=== PATIENT | female | born 1960 | race Caucasian/White ===

== ENCOUNTER 2017-12-12 21:12 | Observation (INO) ==
[2017-12-12] MEDS ORDERED: 0.9 % Sodium Chloride 500 ML IVC ONE (21:23)
[2017-12-12] MEDS ORDERED: Aspirin 81 MG TAB.CHEW PO ONE (21:23)
--- NOTE | 2017-12-12 21:27 | Emergency Department Note ---
Disposition Clinical Impression: Chest pain Qualifiers: Chest pain type: other chest pain Qualified Code(s): R07.89 - Other chest pain Disposition: Admitted As Inpatient Chest Pain HPI - General Chief Complaint: ED General Medical Stated Complaint: multiple complaints Time Seen by Provider: 12/12/17 21:22 Source: patient, EMS Mode of arrival: ambulatory Limitations: no limitations Vital Signs Reviewed: Yes Nursing Notes Reviewed: Yes - History of Present Illness HPI Narrative: Patient here for evaluation of multiple complaints. EMS reports initial call for chest pain and shortness of breath. The patient states that she had onset of symptoms while she was at home that consisted of generalized unwell feeling with nausea and diaphoresis as well as chest pain which she describes as an elephant sitting on her chest. The chest pain lasted for approximately 15 minutes and has mostly resolved upon arrival. Patient states pain 1 out of 10. Patient had associated shortness of breath which is also improved. The patient states that she began developing numbness and tingling in her extremities and was concerned because she did have some similar symptoms and she had a previous stroke. Previous stroke she states was related to confusion and difficulty with speech. These symptoms have now resolved. Patient does not have any strokelike symptoms on exam. - Related Data Home Medications Medication Instructions Recorded Confirmed Aspirin [Ecotrin] 325 mg PO DAILY 12/12/17 12/12/17 Atorvastatin [Lipitor] 80 mg PO HS 12/12/17 12/12/17 FLUoxetine HCl [Fluoxetine HCl] 10 mg PO DAILY 12/12/17 12/12/17 Levothyroxine [Synthroid] 175 mcg PO 0630 12/12/17 12/12/17 Losartan Potassium [Cozaar] 100 mg PO DAILY 12/12/17 12/12/17 Omeprazole [PriLOSEC] 20 mg PO DAILY 12/12/17 12/12/17 lamoTRIgine [Lamictal Xr] 100 mg PO BID 12/12/17 12/12/17 traZODone [TraZODone] 50 mg PO HS 12/12/17 12/12/17 Allergies Allergy/AdvReac Type Severity Reaction Status Date / Time No Known Allergies Allergy Verified 04/29/17 11:01 Review of Systems: CONSTITUTIONAL: No weight loss, fever, chills, weakness or fatigue. HEENT: Eyes: No visual changes. Ears, Nose, Throat: No hearing loss, difficulty talking or unable to swallow. SKIN: No rash or itching. CARDIOVASCULAR: Chest pain RESPIRATORY: Shortness of breath GASTROINTESTINAL: No anorexia, nausea, vomiting or diarrhea. No abdominal pain or blood. GENITOURINARY: No burning on urination or hematuria. NEUROLOGICAL: No headache, dizziness, syncope, paralysis, ataxia, numbness or tingling in the extremities. No change in bowel or bladder control. MUSCULOSKELETAL: No muscle pain, back pain, joint pain or stiffness. Psych: Anxiety Chest Pain PMH - Past Medical History Medical history: Reports: asthma, hypertension, thyroid disease Surgical history: Reports: , cholecystectomy, herniorrhaphy, knee replacement Psychiatric history: Reports: anxiety, bipolar, depression - Social History Smoking Status: Current every day smoker Alcohol use: Reports: none Drug use: Reports: none Physical Exam General: Well appearing, nontoxic, no acute distress Head: Normocephalic Atraumatic Eyes: PERRL, EOMI ENT: Airway patent, no stridor Neck: supple, no meningismus Chest: Lungs clear to auscultation bilateral Cardiac: Regular rate and rhythm, no murmurs, rubs or gallops Abdomen: soft, nontender, nondistended; no guarding, rebound, or tenderness to percussion Musculoskeletal: Calves symmetric, nontender, no palpable cord Skin: No rash, normal skin tone Neuro: Alert and Oriented to person, place, and time; No focal deficit, CN 2-12 symmetric and intact Course - Consultations Consultation #1: Discussed with hospitalist. Patient accepted for admission. Vital Signs Temperature 97.8 F 12/12/17 21:16 Pulse Rate 66 12/12/17 21:16 Respiratory Rate 16 12/12/17 21:16 Blood Pressure 127/71 12/12/17 21:16 O2 Sat by Pulse Oximetry 96 12/12/17 21:16 Temperature 97.5 F L 12/13/17 04:00 Pulse Rate 56 12/13/17 04:00 Respiratory Rate 16 12/13/17 04:00 Blood Pressure 152/77 12/13/17 04:00 O2 Sat by Pulse Oximetry 95 12/13/17 04:00 Oxygen Delivery Oxygen Delivery Nasal Cannula Chest Pain - Lab Data Result diagrams: 12/13/17 05:06 12/13/17 05:06 Lab Results 12/12/17 12/12/1718 Range/Units 21:47 21:47 21:47 WBC 10.2 (4.3-11.1) K/mcL RBC 4.26 (3.82-4.97) M/mcL Hgb 13.3 (11.5-15.4) g/dL Hct 40.4 (35.3-44.9) % MCV 94.8 (83.0-100.0) fL MCH 31.2 (28.0-33.3) pg MCHC 32.9 (31.6-35.5) g/dL RDW 12.7 (11.5-14.5) % Plt Count 265 (140-400) K/mcL MPV 9.9 (9.4-12.4) fL Immature Gran % 0.3 (0-4) % Seg Neutrophils % 70.0 % Lymphocytes % 24.7 % Monocytes % 3.7 % Eosinophils % 0.9 % Basophils % 0.4 % Neutrophils # 7.1 (1.6-8.9) K/mcL Lymphocytes # 2.5 (0.6-4.6) K/mcL Monocytes # 0.4 (0.0-1.3) K/mcL Eosinophils # 0.1 (0.0-0.6) K/mcL Basophils # 0.0 (0.0-0.2) K/mcL Sodium 140 (136-145) mEq/L Potassium 3.6 (3.5-5.1) mEq/L Chloride 108 H (98-107) mEq/L Carbon Dioxide 28 (23-29) mEq/L BUN 7 (6-20) mg/dL Creatinine 0.93 (0.60-1.20) mg/dL Est GFR ( Amer) > 60 (> 60) Est GFR (Non-Af Amer) > 60 (> 60) BUN/Creatinine Ratio 8 (6-26) Glucose 98 (70-105) mg/dL Calculated Osmolality 288 (280-300) Calcium 8.6 (8.6-10.3) mg/dL Troponin I (< 0.04) ng/mL B-Natriuretic Peptide 54 (Less than 100) pg/mL 12/12/17 Range/Units 21:47 WBC (4.3-11.1) K/mcL RBC (3.82-4.97) M/mcL Hgb (11.5-15.4) g/dL Hct (35.3-44.9) % MCV (83.0-100.0) fL MCH (28.0-33.3) pg MCHC (31.6-35.5) g/dL RDW (11.5-14.5) % Plt Count (140-400) K/mcL MPV (9.4-12.4) fL Immature Gran % (0-4) % Seg Neutrophils % % Lymphocytes % % Monocytes % % Eosinophils % % Basophils % % Neutrophils # (1.6-8.9) K/mcL Lymphocytes # (0.6-4.6) K/mcL Monocytes # (0.0-1.3) K/mcL Eosinophils # (0.0-0.6) K/mcL Basophils # (0.0-0.2) K/mcL Sodium (136-145) mEq/L Potassium (3.5-5.1) mEq/L Chloride (98-107) mEq/L Carbon Dioxide (23-29) mEq/L BUN (6-20) mg/dL Creatinine (0.60-1.20) mg/dL Est GFR ( Amer) (> 60) Est GFR (Non-Af Amer) (> 60) BUN/Creatinine Ratio (6-26) Glucose (70-105) mg/dL Calculated Osmolality (280-300) Calcium (8.6-10.3) mg/dL Troponin I < 0.03 (< 0.04) ng/mL B-Natriuretic Peptide (Less than 100) pg/mL Heart Score - Score History: Highly Suspicious EKG: Non Specific repolarisation Disturbance Age: 45-65 Risk Factors: 1-2 risk factors Troponin: Less than normal limit HEART Score Total: 5 Attestation Statement - Attestation Attestation: I, Robe Avalos MD, personally evaluated this patient and discussed their management with the resident physician. I reviewed the resident's note and agree with the documented findings, medical decision making, and plan of care. 57-year-old female presents to the emergency department by ambulance with a complaint of diffuse anterior chest pain which started earlier this evening. She describes the pain as a pressure like an elephant sitting on her chest. She complains of shortness of breath with the episode. She also complains of diaphoresis. Nausea but no vomiting. No cough or fever. On examination patient is a well-developed obese female in no acute distress. She is alert and oriented 3. There is no cyanosis or diaphoresis. Chest is nontender to palpation. Breath sounds are clear and equal bilaterally. Heart regular rate and rhythm. Abdomen soft and nontender with normal bowel sounds. Labs reviewed. Chest x-ray negative. No acute changes on EKG. The hospitalist, Dr. Madsen, was consulted and accepted admission of the patient.
[2017-12-12 21:55] LABS: Basophils % 0.4 %; Eosinophils # 0.1 K/mcL (0.0-0.6); Eosinophils % 0.9 %; Hematocrit 40.4 % (35.3-44.9); Hemoglobin 13.3 g/dL (11.5-15.4); Immature Granulocytes % 0.3 % (0-4); Lymphocytes # 2.5 K/mcL (0.6-4.6); Lymphocytes % 24.7 %; Mean Corpuscular HGB Conc 32.9 g/dL (31.6-35.5); Mean Corpuscular Hemoglobin 31.2 pg (28.0-33.3); Mean Corpuscular Volume 94.8 fL (83.0-100.0); Mean Platelet Volume 9.9 fL (9.4-12.4); Monocytes # 0.4 K/mcL (0.0-1.3); Monocytes % 3.7 %; Neutrophils # 7.1 K/mcL (1.6-8.9); Platelet Count 265 K/mcL (140-400); Red Blood Count 4.26 M/mcL (3.82-4.97); Red Cell Distribution Width 12.7 % (11.5-14.5)
[2017-12-12 22:11] LABS: BUN/Creatinine Ratio 8 (6-26); Blood Urea Nitrogen 7 mg/dL (6-20); Calcium 8.6 mg/dL (8.6-10.3); Carbon Dioxide 28 mEq/L (23-29); Chloride 108 mEq/L (98-107); Glucose 98 mg/dL (70-105); Osmolality,Calculated 288 (280-300); Potassium 3.6 mEq/L (3.5-5.1); Sodium 140 mEq/L (136-145); eGFR For African Americans > 60 (> 60); eGFR For Non-African Americans > 60 (> 60)
[2017-12-13] MEDS ORDERED: Naloxone 0.4 MG/ML INJ IVP PRN (04:09)
[2017-12-13] MEDS ORDERED: Acetaminophen 325 MG TABLET PO PRN (04:09)
[2017-12-13] MEDS ORDERED: *HR* HYDROcodone/Acet 5/325 mg TABLET PO PRN (04:09)
--- NOTE | 2017-12-13 05:01 | Internal Med History&Physical ---
Date of Encounter: 12/13/17 Time of Encounter: 03:45 Assessment and Plan (1) Chest pain Current visit: Yes Status: Acute 1. I am not convinced she has cardiac source of pain; however, patient smokes and has risk factors. 2. Will cycle troponins and EKG's while pursuing GI work-up. 3. Patient will likely need stress test tomorrow or as outpatient. Qualifiers: Chest pain type: other chest pain Qualified Code(s): R07.89 - Other chest pain; R07.8 - Other chest pain (2) Postprandial epigastric pain Current visit: Yes Status: Acute 1. History suggests this is the source of her chest pain -- likely GI in nature. 2. Will check amylase and lipase. If abnormal, patient will need imaging of liver/pancreas. 3. Will place on IV Protonix BID. 4. Patient may need EGD soon to evaluate for gastric/duodenal ulcers. (3) HTN (hypertension) Current visit: No Status: Chronic 1. Continue home meds as appropriate. 2. Monitor BP and adjust as needed. Qualifiers: Hypertension type: essential hypertension Qualified Code(s): I10 - Essential (primary) hypertension (4) DVT prophylaxis Current visit: No Status: Acute 1. Heparin SQ. Internal Medicine - H&P: HPI Chief complaint: chest pain Admitted From: Emergency Dept Plans for Post Hospital Care: Home History of present illness: Ms. Rivera is a 57 year old female who presents with complaints of sudden onset of chest pain tonight, which she describes as an elephant sitting on her chest. Symptoms started while she was watching the Super Bowl last night and eating appetizers. As she was eating meatballs, she developed sudden onset of chest pain associated with nausea, diaphoresis, vomiting, and substernal chest pain. Her son called EMS and patient was brought to the ER. Workup was negative, and she was admitted to hospitalist service for chest pain. Upon my assessment of the patient, she describes the same current pain noted above. When I asked her to point to and specify where the pain was actually located, it was subxiphoid and right upper quadrant abdomen radiating to her mid back/scapula. I explained to her that this sounds more like gallbladder pain, and she states she has no gallbladder. She had a cholecystectomy a few years ago. She does say she has known ulcers in her stomach diagnosed by EGD in another hospital within the last several months. She denies any hematemesis , melena, or hematochezia. She does not drink alcohol, but I also still worry about pancreatitis. She denies any prior history of heart disease, but she does have several risk factors. Given the above GI concerns and cardiac concerns, we will proceed with workup for both. Past Med Surg Social Fam HX - Past Medical History Attestation: Yes The following information was validated with the patient. Source: patient, old records reviewed Medical history: asthma, CVA, hypertension, thyroid disease Psychiatric history: anxiety, bipolar, depression - Past Surgical History Surgical History: , cholecystectomy, herniorrhaphy, knee replacement - Social History Smoking Status: Current every day smoker Packs per day: 0.5 Smokeless Tobacco Status: No Alcohol use: none Drug use: none Current living situation: Home, With Family Activity Level: Independent ambulation Recent Out of Country Travel Within the Last 8 Weeks: No - Family History Mother Hx Family Cardiac Disorders: Yes Hx Family Cancer: Yes Father Hx Family Cardiac Disorders: Yes Internal Medicine - H&P: Meds Aspirin [Ecotrin] 325 mg PO DAILY 12/12/17 [History] Atorvastatin [Lipitor] 80 mg PO HS 12/12/17 [History] FLUoxetine HCl [Fluoxetine HCl] 10 mg PO DAILY 12/12/17 [History] Levothyroxine [Synthroid] 175 mcg PO 0630 12/12/17 [History] Losartan Potassium [Cozaar] 100 mg PO DAILY 12/12/17 [History] Omeprazole [PriLOSEC] 20 mg PO DAILY 12/12/17 [History] lamoTRIgine [Lamictal Xr] 100 mg PO BID 12/12/17 [History] traZODone [TraZODone] 50 mg PO HS 12/12/17 [History] 3 Allergy/AdvReac Type Severity Reaction Status Date / Time No Known Allergies Allergy Verified 04/29/17 11:01 - Constitutional Constitutional: no chills, no fever(s), no night sweats - EENT Eyes: no blurry vision, no change in vision Ears: no ear pain, no tinnitus Nose, mouth and throat: no nasal congestion, no sinus pressure, no sore throat - Cardiovascular Cardiovascular ROS IM: chest pain, diaphoresis, palpitations, no dyspnea, no dyspnea on exertion, no syncope - Respiratory Respiratory: no cough, no dyspnea, no hemoptysis, no chest congestion, no excessive phlegm production, no change in phlegm color - Gastrointestinal Gastrointestinal: abdominal pain, dyspepsia, heartburn, nausea, vomiting, no diarrhea, no hematemesis, no hematochezia, no melena - Genitourinary Genitourinary: no dysuria, no flank pain, no hematuria - Musculoskeletal Musculoskeletal ROS IM: no arthralgias, no back pain - Integumentary Integumentary IM: no rash, no jaundice - Neurological Neurological ROS: no dizziness, no focal weakness, no frequent falls, no headache(s) - Psychiatric Psychiatric: no anxiety, no depression - Endocrine Endocrine IM: no polydipsia, no polyuria - Allergic/Immunologic Allergic/Immunologic: GI upset with certain foods, no wheezing - Constitutional Vitals: Temp Pulse Resp BP Pulse Ox 97.5 F L 56 16 152/77 95 12/13/17 04:00 12/13/17 04:00 12/13/17 04:00 12/13/17 04:00 12/13/17 04:00 General appearance: Present: cooperative, mild distress, A&O X 3, pleasant, obese, answers questions appropriately - Head Head exam: Present: atraumatic, normal inspection - Eye Eye exam: Present: EOMI, PERRL. Absent: scleral icterus Pupils: Present: normal accommodation - ENT ENT exam: Present: mucous membranes dry, normal exam - Neck Neck exam general surgery: Present: full ROM, supple. Absent: tenderness, nuchal rigidity, thyromegaly - Respiratory Respiratory exam: Present: CTAB. Absent: chest wall tenderness, rales, rhonchi , wheezes - Cardiovascular Cardiovascular exam: Present: RRR, +S1, +S2. Absent: diastolic murmur, systolic murmur - GI/Abdominal GI/Abdominal exam: Present: normal bowel sounds, soft, tenderness (epigastric area and RUQ -->radiating to midback/scapula), no peritoneal signs. Absent: guarding, hepatomegaly, mass, rebound, splenomegaly - Extremities Exam Extremities exam: Present: full ROM, warm, radial pulses palpable and symmetrical. Absent: calf tenderness, joint swelling, pedal edema - Back Exam Back exam: Present: normal inspection. Absent: CVA tenderness (L), CVA tenderness (R), tenderness - Neurological Exam Neurological exam: Present: alert, CN II-XII intact, oriented X3, no focal deficits, strengths equal and symetr throughout - Psychiatric Psychiatric exam: Present: normal affect, normal mood - Skin Skin exam: Present: dry, warm. Absent: rash Internal Med - H&P Results - Labs CBC & Chem 7: 12/12/17 21:47 12/12/17 21:47 - EKG Data -: EKG Interpreted by Myself - EKG Data Prior EKG available for review: no EKG comments: 12/13/17 05:06 NSR; normal findings - Diagnostic Studies Chest x-ray Status: image reviewed by me (negative)
[2017-12-13] MEDS: Sucralfate 1 GM TABLET PO SCH ×5 (05:41→21:30)
[2017-12-13] MEDS: *HR* Heparin 5,000 UNIT/ML VIAL SQ SCH ×2 (05:42→18:01)
[2017-12-13] MEDS: Pantoprazole 40 MG VIAL IVP SCH ×3 (05:42→18:01)
[2017-12-13] MEDS: 0.9 % Sodium Chloride w KCl 20 MEQ/1,000 ML MLS IVC SCH ×2 (05:42→18:01)
[2017-12-13 05:46] LABS: Basophils % 0.4 %; Eosinophils # 0.1 K/mcL (0.0-0.6); Eosinophils % 0.7 %; Hematocrit 40.4 % (35.3-44.9); Hemoglobin 13.8 g/dL (11.5-15.4); Immature Granulocytes % 0.3 % (0-4); Lymphocytes # 2.9 K/mcL (0.6-4.6); Lymphocytes % 29.5 %; Mean Corpuscular HGB Conc 34.2 g/dL (31.6-35.5); Mean Corpuscular Hemoglobin 31.4 pg (28.0-33.3); Mean Platelet Volume 10.3 fL (9.4-12.4); Monocytes # 0.5 K/mcL (0.0-1.3); Monocytes % 4.7 %; Neutrophils # 6.3 K/mcL (1.6-8.9); Platelet Count 259 K/mcL (140-400); Red Blood Count 4.39 M/mcL (3.82-4.97); Red Cell Distribution Width 12.7 % (11.5-14.5); Segmented Neutrophils % 64.4 %
[2017-12-13 05:58] LABS: INR 0.9; Prothrombin Time 10.1 Seconds (9.4-12.1)
[2017-12-13 06:01] LABS: Activated Partial Thrombo Time 29.4 Seconds (26.0-36.0)
[2017-12-13 06:27] LABS: Alanine Aminotransferase 8 Units/L (7-52); Albumin 3.5 g/dL (3.5-5.7); Albumin/Globulin Ratio 1.3 (1.1-2.2); Alkaline Phosphatase 112 Units/L (34-104); Amylase 22 Units/L (29-103); Aspartate Amino Transferase 9 Units/L (13-39); BUN/Creatinine Ratio 9 (6-26); Bilirubin,Total 0.5 mg/dL (0.3-1.0); Blood Urea Nitrogen 8 mg/dL (6-20); Calcium 8.7 mg/dL (8.6-10.3); Carbon Dioxide 29 mEq/L (23-29); Chloride 111 mEq/L (98-107); Chol/HDL Ratio 3.5 (0-4.9); Cholesterol 114 mg/dL (< 200); Globulin 2.6 g/dL (2.4-3.5); Glucose 95 mg/dL (70-105); HDL Cholesterol 33 mg/dL (40-59); LDL Cholesterol,Calculated 60 mg/dL (0-99); Lipase 19 Units/L (11-82); Magnesium 2.1 mg/dL (1.6-2.6); Osmolality,Calculated 296 (280-300); Potassium 3.5 mEq/L (3.5-5.1); Sodium 144 mEq/L (136-145); Total Protein 6.1 g/dL (6.4-8.9); Triglycerides 104 mg/dL (< 150); eGFR For African Americans > 60 (> 60); eGFR For Non-African Americans > 60 (> 60)
[2017-12-13] MEDS ORDERED: Regadenoson 0.4 MG/5 ML SYRINGE IVP ONE (11:19)
[2017-12-13] MEDS: lamoTRIgine 100 MG TABLET PO SCH ×2 (12:45→21:30)
[2017-12-13] MEDS: FLUoxetine HCl 10 MG CAPSULE PO SCH (12:45)
[2017-12-13] MEDS: Aspirin Enteric Coated 325 MG Tablet PO SCH (12:45)
--- NOTE | 2017-12-13 16:40 | Electrocardiograph Report ---
[place] [id number] Test Date: 2017-12-13 Pat Name: Patrick Rievra Department: 113 Room: 3B Gender: F Press Manager: : 1960 Requested By: Aldo Redding Order Number: [id number] Reading MD: Shaniqua Diaz Measurements Intervals [place] Rate: 58 P: 38 AR: 171 QRS: 26 QRSD: 100 T: 20 QT: 440 QTc: 437 Interpretive Statements SINUS BRADYCARDIA Electronically Signed On 12-13-2017 16:38:25 EST by Shaniqua Diaz
--- NOTE | 2017-12-13 16:48 | Electrocardiograph Report ---
[place] [id number] Test Date: 2017-12-12 Pat Name: Patrick Rivera Department: 102 Room: 3B Gender: F Poultry Killer: : 1960 Requested By: Srinath Pedro Order Number: [id number] Reading MD: Shaniqua Diaz Measurements Intervals [place] Rate: 60 P: 23 WA: 149 QRS: 33 QRSD: 106 T: 27 QT: 444 QTc: 446 Interpretive Statements SINUS RHYTHM Electronically Signed On 12-13-2017 16:46:56 EST by Shaniqua Diaz
--- NOTE | 2017-12-13 18:57 | Internal Med Progress Note ---
Date of Encounter: 12/13/17 Time of Encounter: 15:00 - Assessment and plan (1) Chest pain Current Visit: Yes Status: Acute Assessment and plan: Patient reports sudden onset of midepigastric pain, pressure with associated nausea and profuse diaphoresis. Symptoms began while she was watching the Super Bowl and eating high-fat appetizers. Patient reports lengthy history of GERD and ulcers in the past. She is tender in the epigastric area. She reported radiation of pain straight through to her back. Troponins were negative 3. EKG was sinus bradycardia with a rate of 58, OR interval 171, QRS 100, QT/QTC 440/437. Stress test perfusion imaging was negative for ischemia or infarct with a gated EF of 64%. It is most likely due to GERD symptoms. I have increased her omeprazole to 20 mg by mouth twice a day. She is also on Carafate 1000 mg 4 times a day. Recommend patient follow up with GI for EGD after discharge. Continue telemetry Continue pain management Qualifiers: Chest pain type: other chest pain Qualified Code(s): R07.89 - Other chest pain; R07.8 - Other chest pain (2) Postprandial epigastric pain Current Visit: Yes Status: Acute Assessment and plan: Plan as above. Abdomen pelvis CT was unremarkable. Abdomen/Pelvis CT 12/13/17 16:30 IMPRESSION: No acute findings. D/ / Divya Dennison MD / Divya Dennison MD Interpreting Provider: Divya Dennison MD (3) DVT prophylaxis Current Visit: Yes Status: Acute Assessment and plan: Heparin subcutaneous twice daily. (4) HTN (hypertension) Current Visit: Yes Status: Chronic Assessment and plan: Patient remains hypertensive through visit. She currently takes Cozaar 100 mg by mouth daily. Patient does not appear to have any renal disease, will add low -dose of hydrochlorothiazide and assess for effectiveness. Qualifiers: Hypertension type: essential hypertension Qualified Code(s): I10 - Essential (primary) hypertension - Time Spent With Patient less than 15 minutes - Subjective Interval history: Patient was seen and assessed at 3 PM. She was drowsy, arouses easily to verbal stimuli. She reports mid abdominal and epigastric pain after eating high fat, processed green party food during Super Bowl. She reports she began feeling ill, laid down and began having abdominal pain, became nauseated and profusely diaphoretic. She is brought to the emergency department by EMS for evaluation. - Constitutional Vitals: Temp Pulse Resp BP Pulse Ox 98.3 F 54 18 176/82 95 12/13/17 16:49 12/13/17 16:49 12/13/17 16:49 12/13/17 16:49 12/13/17 16:49 General appearance: Present: cooperative, mild distress, A&O X 3, pleasant, obese, answers questions appropriately - Head Head exam: Present: atraumatic, normal inspection, normocephalic - Eye Eye exam: Present: normal appearance, conjuntiva pink, sclera anicteric - Neck Neck exam general surgery: Present: supple, trachea midline. Absent: lymphadenopathy, tenderness - Respiratory Respiratory exam: Present: CTAB. Absent: accessory muscle use, chest wall tenderness, rales, respiratory distress, rhonchi, wheezes - Cardiovascular Cardiovascular exam: Present: RRR, +S1, +S2. Absent: diastolic murmur, gallop, rubs, systolic murmur - GI/Abdominal GI/Abdominal exam: Present: normal bowel sounds, soft, tenderness. Absent: distended, hernia, hepatomegaly - Extremities Exam Extremities exam: Present: normal inspection, warm, radial pulses palpable and symmetrical. Absent: calf tenderness, cyanotic, pedal edema - Neurological Exam Neurological exam: Present: alert, oriented X3, no focal deficits, pronater drift. Absent: facial droop, speech deficit - Skin Skin exam: Present: dry, intact, normal color, warm. Absent: rash Internal Medicine: Result - Labs CBC & Chem 7: 12/13/17 05:06 12/13/17 05:06 Labs: Short CBC 12/13/17 Range/Units 05:06 WBC 9.8 (4.3-11.1) K/mcL Hgb 13.8 (11.5-15.4) g/dL Hct 40.4 (35.3-44.9) % Plt Count 259 (140-400) K/mcL Neutrophils # 6.3 (1.6-8.9) K/mcL BMP 12/13/17 05:06 Sodium 144 Potassium 3.5 Chloride 111 H Carbon Dioxide 29 BUN 8 Creatinine 0.86 Glucose 95 Calcium 8.7 Cardiac Enzymes 12/13/17 12/13/17 Range/Units 05:06 16:50 Troponin I < 0.03 < 0.03 (< 0.04) ng/mL Liver Function 12/13/17 Range/Units 05:06 Total Bilirubin 0.5 (0.3-1.0) mg/dL AST 9 L (13-39) Units/L ALT 8 (7-52) Units/L Alkaline Phosphatase 112 H (34-104) Units/L Albumin 3.5 (3.5-5.7) g/dL - ABG Interpretation ABG results: PT/INR, D-dimer PT 10.1 Seconds (9.4-12.1) 12/13/17 05:06 - Impressions Impressions Abdomen/Pelvis CT 12/13/17 16:30 IMPRESSION: No acute findings. D/ / Divya Dennison MD / Divya Dennison MD Interpreting Provider: Divya Dennison MD Consult Discharge Plan - Plan Referrals: Joey Cherry MD [Primary Care Provider] -
[2017-12-13] MEDS ORDERED: traZODone 50 MG TABLET PO SCH (21:00)
[2017-12-14] MEDS: *HR* Heparin 5,000 UNIT/ML VIAL SQ SCH (05:57)
[2017-12-14] MEDS ORDERED: hydroCHLOROthiazide 25 MG TABLET PO SCH (09:00)
[2017-12-14] MEDS: Sucralfate 1 GM TABLET PO SCH (09:06)
[2017-12-14] MEDS: FLUoxetine HCl 10 MG CAPSULE PO SCH (09:06)
[2017-12-14] MEDS: Aspirin Enteric Coated 325 MG Tablet PO SCH (09:07)
[2017-12-14] MEDS: lamoTRIgine 100 MG TABLET PO SCH (09:07)
--- NOTE | 2017-12-14 11:01 | Discharge Summary ---
Date of Encounter: 12/14/17 Time of Encounter: 10:59 - Discharge Diagnosis (1) GERD (gastroesophageal reflux disease) Priority: Primary Status: Acute Comments: Has known history of GERD and gastric ulcers. Follows with GI. Presented with mid epigastric pain with associated nausea and diaphoresis. Symptoms worsened with food. Cardiac etiology ruled out with negative serial troponins, non- acute EKG and negative stress test. Symptoms improved with increasing home PPI. Has follow-up with GI in 3-4 weeks. Cont home PPI at increased dose. Qualifiers: Esophagitis presence: esophagitis presence not specified Qualified Code(s) : K21.9 - Gastro-esophageal reflux disease without esophagitis (2) CVA (cerebral vascular accident) Priority: Secondary Status: Chronic Comments: per hx with residual mild memory impairment. Cont home ASA, statin. Qualifiers: CVA mechanism: embolism Precerebral and cerebral artery: middle cerebral artery Laterality of affected vessel: right Qualified Code(s): I63.411 - Cerebral infarction due to embolism of right middle cerebral artery (3) HTN (hypertension) Priority: Primary Status: Chronic Comments: per hx. BP intermittently uncontrolled; suspect secondary to not receiving all of home BP medications. BP significantly improved on home BP medication regimen. Can follow up with PCP as needed. Qualifiers: Hypertension type: essential hypertension Qualified Code(s): I10 - Essential (primary) hypertension (4) Bipolar 1 disorder Priority: Secondary Status: Chronic Comments: per hx. Cont home medication regimen. - Discharge Medications Prescriptions: hydroCHLOROthiazide [Hydrochlorothiazide] 12.5 mg PO DAILY #30 tablet Omeprazole [PriLOSEC] 20 mg PO DAILY #60 capsule.dr Home Medications: Aspirin [Ecotrin] 325 mg PO DAILY 12/12/17 [History] Atorvastatin [Lipitor] 80 mg PO HS 12/12/17 [History] FLUoxetine HCl [Fluoxetine HCl] 10 mg PO DAILY 12/12/17 [History] Levothyroxine [Synthroid] 175 mcg PO 0630 12/12/17 [History] Losartan Potassium [Cozaar] 100 mg PO DAILY 12/12/17 [History] traZODone [TraZODone] 50 mg PO HS 12/12/17 [History] lamoTRIgine [Lamictal] 100 mg PO QA 12/13/17 [History] lamoTRIgine [Lamictal] 200 mg PO HS 12/13/17 [History] Omeprazole [PriLOSEC] 20 mg PO DAILY #60 capsule. 12/14/17 [Rx] hydroCHLOROthiazide [Hydrochlorothiazide] 12.5 mg PO DAILY #30 tablet 12/14/17 [ Rx] Allergies/Adverse Reactions: 3 Allergy/AdvReac Type Severity Reaction Status Date / Time No Known Allergies Allergy Verified 04/29/17 11:01 Procedures/tests Complete & Pending: Procedures Performed prior 72 hours Category Date Time Status CT abd pelvis wo no iv no oral [CT] Routine Cat Scan 12/13/17 16:30 Completed NM con perf SPECT multi [NM] Routine Exams 12/13/17 09:48 Taken ECG 12 lead ECG [ECG] AM 0600 Y 12/13/17 06:00 Completed SP pharm nuclear stress Routine Y 12/13/17 09:48 Completed Date of admission: 12/12/17 23:12 Primary care physician: Joey Cherry MD Discharging clinician: Simi Aems Anticipated date of discharge: 12/14/17 - Patient Status Disposition: Home, Self-Care Functional capacity at discharge: independent ambulation Overall status at discharge: patient is back to baseline - Discharge Instructions Instructions: Omeprazole (By mouth), Diet for Ulcers and Gastritis (GEN), Gastroesophageal Reflux Disease (DC) Follow Up With: Joey Cherry MD [Primary Care Provider] - Aye Green MD [Partnered Physician] - (Please follow-up with GI as previously planned. Please call office in the morning and advised them of recent hospitalization as you may need a repeat EGD) - Diet and Activity Activity: increase activity as tolerated Diet: low fat, low cholesterol Interval History: Seen and examined at bedside. Patient is AMA, information obtained from chart review and patient report. Patient says she feels better, back to baseline and would like to discharge him today. Says she has known GERD and gastric ulcers. Symptoms improved with increasing home PPI. She has outpatient GI follow-up in approximately 3-4 weeks for a C scope. Advised to call the office after discharge to make them aware of hospitalization as she may need/benefit from EGD. Hospital course: See assessment and plan for hospital course - Time Spent with Patient Total time spent providing and/or coordinating discharge services: - Constitutional Vitals: Temp Pulse Resp BP Pulse Ox 98.0 F 61 17 170/86 94 12/14/17 07:03 12/14/17 07:03 12/14/17 07:03 12/14/17 07:03 12/14/17 07:03 General appearance: Present: cooperative, A&O X 3, pleasant, obese, answers questions appropriately - Head Head exam: Present: atraumatic, normocephalic - Eye Eye exam: Present: PERRL, conjuntiva pink, sclera anicteric Pupils: Present: PERRL - Neck Neck exam general surgery: Present: supple, trachea midline. Absent: lymphadenopathy - Respiratory Respiratory exam: Present: CTAB. Absent: accessory muscle use, rales, rhonchi, wheezes - Cardiovascular Cardiovascular exam: Present: RRR, +S1, +S2. Absent: diastolic murmur, gallop, rubs, systolic murmur - GI/Abdominal GI/Abdominal exam: Present: normal bowel sounds, soft, no peritoneal signs. Absent: distended, tenderness - Extremities Exam Extremities exam: Present: warm, radial pulses palpable and symmetrical. Absent : calf tenderness, cyanotic, pedal edema - Neurological Exam Neurological exam: Present: CN II-XII intact, oriented X3, no focal deficits. Absent: pronater drift, facial droop, speech deficit - Skin Skin exam: Present: dry, intact
[2017-12-14 11:17] VITALS: BP 144/79
== END 2017-12-14 12:00 | disposition home or self-care (01) ==
LOC: EMEROO 21:12 → 3BNU 21:12 → MERGE 23:12 → 3BNU 23:26
PROVIDERS: ADMIT Internal Medicine; ATTEND Registered Nurse

== ENCOUNTER 2018-02-06 14:52 | Observation (INO) ==
--- NOTE | 2018-02-06 15:15 | Emergency Department Note ---
Disposition Clinical Impression: Transient cerebral ischemia Qualifiers: Transient cerebral ischemia type: unspecified Qualified Code(s): G45.9 - Transient cerebral ischemic attack, unspecified Disposition: Admitted As Inpatient Condition: Good Time of Disposition: 17:12 General Adult HPI - General Chief complaint: ED Neuro Symptoms/Deficit Stated complaint: L arm/leg numbness Time Seen by Provider: 02/06/18 15:05 Source: patient Limitations: no limitations Nursing Notes Reviewed: Yes Vital Signs Reviewed: Yes - History of Present Illness HPI Narrative: Numbness and tingling on left arm and left leg also weakness of began around 240. 20 minutes prior to arrival here. Mentating appropriately. Symptoms have resolved with the exception of the tingling on arrival here. No other complaints. Does have history of stroke. Pain Scale: 7 - Related Data Home Medications Medication Instructions Recorded Confirmed Aspirin [Ecotrin] 325 mg PO DAILY 12/12/17 02/06/18 Atorvastatin [Lipitor] 80 mg PO HS 12/12/17 02/06/18 FLUoxetine HCl [Fluoxetine HCl] 10 mg PO DAILY 12/12/17 02/06/18 Levothyroxine [Synthroid] 175 mcg PO 0630 12/12/17 02/06/18 Losartan Potassium [Cozaar] 100 mg PO DAILY 12/12/17 02/06/18 traZODone [TraZODone] 50 mg PO HS 12/12/17 02/06/18 lamoTRIgine [Lamictal] 100 mg PO QAM 12/13/17 02/06/18 lamoTRIgine [Lamictal] 200 mg PO 12/13/17 02/06/18 Sucralfate [Carafate] 1 gm PO QIDAC 01/26/18 02/06/18 Previous Rx's Medication Instructions Recorded Pantoprazole Sodium [Protonix] 40 mg PO DAILY #30 tablet. 12/21/17 Allergies Allergy/AdvReac Type Severity Reaction Status Date / Time No Known Allergies Allergy Verified 01/26/18 11:56 All systems ED: reviewed and negative except as stated. Constitutional: Denies: fever, chills ENT ED: Denies: congestion Cardiovascular: Denies: chest pain, palpitations, syncope Respiratory: Denies: cough, dyspnea Gastrointestinal: Denies: abdominal pain, nausea, vomiting, diarrhea Genitourinary: Denies: urgency, dysuria, frequency, hematuria Musculoskeletal: Denies: back pain, neck pain Neurological: Reports: headache, weakness (Left arm left leg), numbness (Left arm left leg), paresthesias (Left arm left leg) Past Medical History - Past Medical History Attestation: Yes The following information was validated with the patient. Source: patient Medical history: Reports: arthritis, asthma, hypertension, thyroid disease Surgical history: Reports: , cholecystectomy, herniorrhaphy, knee replacement Psychiatric history: Reports: anxiety, bipolar, depression - Social History Smoking Status: Current every day smoker Smokeless Tobacco Status: No Alcohol use: Reports: none Drug use: Reports: none Physical Exam - General Limitations: no limitations General appearance: alert, in no apparent distress - Head Head exam: atraumatic, normocephalic, normal inspection - Eye Eye exam: Present: normal appearance, PERRL, EOMI - ENT ENT exam: normal exam, normal oropharynx, mucous membranes moist - Neck Neck exam: Present: normal inspection, full ROM, trachea midline - Chest Chest inspection: Present: normal inspection, symmetric chest wall rise - Respiratory Respiratory exam: Present: normal lung sounds bilaterally. Absent: respiratory distress, accessory muscle use - Cardiovascular Cardiovascular exam: Present: regular rate, normal rhythm, normal heart sounds - Abdominal Exam Abdominal exam: Present: soft, Non-Tender. Absent: tenderness, distention, guarding, rebound, rigidity, organomegaly - Extremities Exam Extremities exam: Present: normal inspection, full ROM, normal capillary refill , other (Patient reports a decreased sensation in her left arm and left leg.). Absent: tenderness, pedal edema - Back Exam Back exam: Present: normal inspection, full ROM. Absent: tenderness - Neurological Exam Neurological exam: Present: alert, oriented X3, CN II-XII intact, motor sensory deficit (Patient reports decreased sensation in her left arm and left leg. No motor deficit) - Psychiatric Psychiatric exam: Present: normal affect, normal mood - Skin Skin exam: Present: warm, dry, intact, normal color. Absent: rash, cyanosis, diaphoresis, erythema Course Course Narrative: Female patient presenting to emergency department complaining of left-sided weakness. States that when she sits down leaning forward she had left-sided weakness. EMS reports that she did have similar side effects shoulder initially however this has resolved since then. The patient's only complaint currently is of some decreased sensation in her left upper and left lower extremity. She has no facial droop. She is mentating properly. Symptoms started at 240. This caught she has an NIH of 1 due to decreased sensation. She has full range of motion in good strength in all 4 extremity. She has had a previous stroke history however no deficits left. She is complaining of a headache. Scan patient's head and get a basic lab workup on patient. She is agreeable with this. Patient also reports frequent TIAs. - Reevaluation(s) Reevaluation #1: Patient reevaluated. She is stating that she still having the numbness in her left arm and left leg. She is mentating appropriately. Still complaining of a headache. We will admit patient to the hospital for TIA. She is agreeable with this. Time: 17:08 Vital Signs Temperature 97.9 F 02/06/18 14:53 Pulse Rate 78 02/06/18 14:53 Respiratory Rate 16 02/06/18 14:53 Blood Pressure 116/75 02/06/18 14:53 O2 Sat by Pulse Oximetry 97 02/06/18 14:53 Temperature 97.9 F 02/06/18 14:53 Pulse Rate 53 02/06/18 15:52 Respiratory Rate 18 02/06/18 15:52 Blood Pressure 116/75 02/06/18 15:52 O2 Sat by Pulse Oximetry 96 02/06/18 15:52 Oxygen Delivery Oxygen Delivery Room Air Medical Decision Making - Medical Records Medical records reviewed: Yes I reviewed the patient's medical records. - Lab Data Lab results reviewed: Yes I reviewed the patient's lab results. Result diagrams: 02/06/18 15:52 02/06/18 15:52 Lab Results 02/06/18 02/06/18 02/06/18 Range/Units 15:52 15:52 15:52 WBC 8.4 (4.3-11.1) K/mcL RBC 4.84 (3.82-4.97) M/mcL Hgb 15.2 (11.5-15.4) g/dL Hct 45.6 H (35.3-44.9) % MCV 94.2 (83.0-100.0) fL MCH 31.4 (28.0-33.3) pg MCHC 33.3 (31.6-35.5) g/dL RDW 12.2 (11.5-14.5) % Plt Count 264 (140-400) K/mcL MPV 10.1 (9.4-12.4) fL Immature Gran % 0.4 (0-4) % Seg Neutrophils % 65.4 % Lymphocytes % 28.2 % Monocytes % 4.4 % Eosinophils % 1.1 % Basophils % 0.5 % Neutrophils # 5.5 (1.6-8.9) K/mcL Lymphocytes # 2.4 (0.6-4.6) K/mcL Monocytes # 0.4 (0.0-1.3) K/mcL Eosinophils # 0.1 (0.0-0.6) K/mcL Basophils # 0.0 (0.0-0.2) K/mcL PT 10.1 (9.4-12.1) Seconds INR 0.9 APTT 28.7 (26.0-36.0) Seconds Sodium 140 (136-145) mEq/L Potassium 4.0 (3.5-5.1) mEq/L Chloride 106 (98-107) mEq/L Carbon Dioxide 30 H (23-29) mEq/L BUN 11 (6-20) mg/dL Creatinine 1.06 (0.60-1.20) mg/dL Est GFR ( Amer) > 60 (> 60) Est GFR (Non-Af Amer) 53 L (> 60) BUN/Creatinine Ratio 10 (6-26) Glucose 90 (70-105) mg/dL Calculated Osmolality 289 (280-300) Calcium 9.3 (8.6-10.3) mg/dL Troponin I < 0.03 (< 0.04) ng/mL TSH (0.340-5.600) mcIU/mL Urine Color (Yellow) Urine Clarity (Clear) Urine pH (5.0-8.0) pH Units Ur Specific [place] (1.010-1.025) Urine Protein (Neg-Trace) mg/dL Urine Glucose (UA) (Normal) mg/dL Urine Ketones (Negative) mg/dL Urine Blood (Negative) Urine Nitrite (Negative) Urine Bilirubin (Negative) Urine Urobilinogen (Normal) mg/dL Ur Leukocyte Esterase (Negative) Urine Microscopic RBC (0-3) per hpf Urine Microscopic WBC (0-3) per hpf Ur Squamous Epith Cells (None-Few) per lpf Urine Bacteria (None-Few) per hpf Hyaline Casts (None-Few) per lpf Ur Culture Indicated? (NO) 02/06/18 02/06/18 Range/Units 15:52 16:29 WBC (4.3-11.1) K/mcL RBC (3.82-4.97) M/mcL Hgb (11.5-15.4) g/dL Hct (35.3-44.9) % MCV (83.0-100.0) fL MCH (28.0-33.3) pg MCHC (31.6-35.5) g/dL RDW (11.5-14.5) % Plt Count (140-400) K/mcL MPV (9.4-12.4) fL Immature Gran % (0-4) % Seg Neutrophils % % Lymphocytes % % Monocytes % % Eosinophils % % Basophils % % Neutrophils # (1.6-8.9) K/mcL Lymphocytes # (0.6-4.6) K/mcL Monocytes # (0.0-1.3) K/mcL Eosinophils # (0.0-0.6) K/mcL Basophils # (0.0-0.2) K/mcL PT (9.4-12.1) Seconds INR APTT (26.0-36.0) Seconds Sodium (136-145) mEq/L Potassium (3.5-5.1) mEq/L Chloride (98-107) mEq/L Carbon Dioxide (23-29) mEq/L BUN (6-20) mg/dL Creatinine (0.60-1.20) mg/dL Est GFR ( Amer) (> 60) Est GFR (Non-Af Amer) (> 60) BUN/Creatinine Ratio (6-26) Glucose (70-105) mg/dL Calculated Osmolality (280-300) Calcium (8.6-10.3) mg/dL Troponin I (< 0.04) ng/mL TSH 1.614 (0.340-5.600) mcIU/mL Urine Color Yellow (Yellow) Urine Clarity Cloudy A (Clear) Urine pH 6.5 (5.0-8.0) pH Units Ur Specific [place] 1.012 (1.010-1.025) Urine Protein Negative (Neg-Trace) mg/dL Urine Glucose (UA) Normal (Normal) mg/dL Urine Ketones Negative (Negative) mg/dL Urine Blood Negative (Negative) Urine Nitrite Negative (Negative) Urine Bilirubin Negative (Negative) Urine Urobilinogen Normal (Normal) mg/dL Ur Leukocyte Esterase Negative (Negative) Urine Microscopic RBC 5-15 H (0-3) per hpf Urine Microscopic WBC 5-15 H (0-3) per hpf Ur Squamous Epith Cells Many H (None-Few) per lpf Urine Bacteria Moderate H (None-Few) per hpf Hyaline Casts None Seen (None-Few) per lpf Ur Culture Indicated? NO (NO) - Radiology Data Radiology results reviewed: Yes I reviewed the patient's radiology results. Head CT 02/06/18 15:07 IMPRESSION: Stable CT brain with no acute intracranial abnormality and chronic findings as described. D/ / Ollie Garcia MD / Ollie Garcia MD Interpreting Provider: Ollie Garcia MD - EKG Data EKG #1 EKG attestation: Yes I reviewed and interpreted this EKG. EKG results narrative: Normal sinus rhythm at a rate of 60. MD interval is 182. Castration is 89. QT is 413. QTC is 4:15. No signs of acute ischemia. Good R-wave progression. No significant change from previous EKG dated 12/13/2017. NIH Stroke Scale - Level of Consciousness LOC: Alert - LOC Questions LOC Questions: Answers both correctly - LOC Commands LOC Commands: Performs both correctly - Best Gaze Best Gaze: Normal - Visual Visual: No visual loss - Facial Palsy Facial Palsy: Normal - Motor Arms Motor Arm-Left: No drift for 10 seconds Motor Arm-Right: No drift for 10 seconds - Motor Legs Motor Leg-Left: No drift for 5 seconds Motor Leg-Right: No drift for 5 seconds - Limb Ataxia Limb Ataxia: Normal, No Ataxia - Sensory Sensory: Mild to moderate loss, "not as sharp" - Best Language Best Language: No aphasia - Dysarthria Dysarthria: Normal - Extinction and Inattention Extinction and Inattention: Normal - NIHSS Total Score NIHSS Total Score: 1
--- NOTE | 2018-02-06 15:21 | Emergency Department Note ---
Disposition Clinical Impression: Transient cerebral ischemia Disposition: Admitted As Inpatient Condition: Good General Adult HPI - General Chief complaint: ED Neuro Symptoms/Deficit Stated complaint: L arm/leg numbness Time Seen by Provider: 02/06/18 15:05 Source: patient Limitations: no limitations - History of Present Illness Pain Scale: 7 - Related Data Home Medications Medication Instructions Recorded Confirmed Aspirin [Ecotrin] 325 mg PO DAILY 12/12/17 02/06/18 Atorvastatin [Lipitor] 80 mg PO HS 12/12/17 02/06/18 FLUoxetine HCl [Fluoxetine HCl] 10 mg PO DAILY 12/12/17 02/06/18 Levothyroxine [Synthroid] 175 mcg PO 0630 12/12/17 02/06/18 Losartan Potassium [Cozaar] 100 mg PO DAILY 12/12/17 02/06/18 traZODone [TraZODone] 50 mg PO HS 12/12/17 02/06/18 lamoTRIgine [Lamictal] 100 mg PO QAM 12/13/17 02/06/18 lamoTRIgine [Lamictal] 200 mg PO HS 12/13/17 02/06/18 Sucralfate [Carafate] 1 gm PO QIDAC 01/26/18 02/06/18 Previous Rx's Medication Instructions Recorded Pantoprazole Sodium [Protonix] 40 mg PO DAILY #30 tablet. 12/21/17 Allergies Allergy/AdvReac Type Severity Reaction Status Date / Time No Known Allergies Allergy Verified 01/26/18 11:56 Past Medical History - Past Medical History Medical history: Reports: arthritis, asthma, hypertension, thyroid disease Surgical history: Reports: , cholecystectomy, herniorrhaphy, knee replacement Psychiatric history: Reports: anxiety, bipolar, depression - Social History Smoking Status: Current every day smoker Smokeless Tobacco Status: No Alcohol use: Reports: none Drug use: Reports: none Physical Exam - General Limitations: no limitations General appearance: alert, in no apparent distress Course - Reevaluation(s) Reevaluation #1: I examined this patient and my medical decision-making was reviewed with the Resident Physician. I agree with the documented findings, disposition and treatment plan as described except to the extent set forth below. Patient presents to the ED complaining of a possible stroke. Patient states 20 minutes prior to her arrival here that she experience weakness on the left side of her body. It was also accompanied by pain. She states it feels like prior strokes. She states her left hand was weak and she cannot raise a cup. EMS reports that she had facial asymmetry that resolved on the way. On examination she is awake alert answers appropriately. Her NIH scale is 1 for sensory discrepancy in the left leg. I do not appreciate any facial asymmetry. She has no pronator drift. She has no ataxia. Plan. The patient's NIH scale is 1. She would not be a TPA candidate secondary to this. Her symptoms are also improving. No stroke alert was called, however we will perform a stroke workup. Likely admission. Time: 15:19 Reevaluation #2: Patient admitted to medicine. Time: 17:22 Vital Signs Temperature 97.9 F 02/06/18 14:53 Pulse Rate 78 02/06/18 14:53 Respiratory Rate 16 02/06/18 14:53 Blood Pressure 116/75 02/06/18 14:53 O2 Sat by Pulse Oximetry 97 02/06/18 14:53 Temperature 97.9 F 02/06/18 14:53 Pulse Rate 53 02/06/18 15:52 Respiratory Rate 18 02/06/18 15:52 Blood Pressure 116/75 02/06/18 15:52 O2 Sat by Pulse Oximetry 96 02/06/18 15:52 Oxygen Delivery Oxygen Delivery Room Air Medical Decision Making - Lab Data Result diagrams: 02/06/18 15:52 02/06/18 15:52 Lab Results 02/06/18 02/06/18 02/06/18 Range/Units 15:52 15:52 15:52 WBC 8.4 (4.3-11.1) K/mcL RBC 4.84 (3.82-4.97) M/mcL Hgb 15.2 (11.5-15.4) g/dL Hct 45.6 H (35.3-44.9) % MCV 94.2 (83.0-100.0) fL MCH 31.4 (28.0-33.3) pg MCHC 33.3 (31.6-35.5) g/dL RDW 12.2 (11.5-14.5) % Plt Count 264 (140-400) K/mcL MPV 10.1 (9.4-12.4) fL Immature Gran % 0.4 (0-4) % Seg Neutrophils % 65.4 % Lymphocytes % 28.2 % Monocytes % 4.4 % Eosinophils % 1.1 % Basophils % 0.5 % Neutrophils # 5.5 (1.6-8.9) K/mcL Lymphocytes # 2.4 (0.6-4.6) K/mcL Monocytes # 0.4 (0.0-1.3) K/mcL Eosinophils # 0.1 (0.0-0.6) K/mcL Basophils # 0.0 (0.0-0.2) K/mcL PT 10.1 (9.4-12.1) Seconds INR 0.9 APTT 28.7 (26.0-36.0) Seconds Sodium 140 (136-145) mEq/L Potassium 4.0 (3.5-5.1) mEq/L Chloride 106 (98-107) mEq/L Carbon Dioxide 30 H (23-29) mEq/L BUN 11 (6-20) mg/dL Creatinine 1.06 (0.60-1.20) mg/dL Est GFR ( Amer) > 60 (> 60) Est GFR (Non-Af Amer) 53 L (> 60) BUN/Creatinine Ratio 10 (6-26) Glucose 90 (70-105) mg/dL Calculated Osmolality 289 (280-300) Calcium 9.3 (8.6-10.3) mg/dL Troponin I < 0.03 (< 0.04) ng/mL TSH (0.340-5.600) mcIU/mL Urine Color (Yellow) Urine Clarity (Clear) Urine pH (5.0-8.0) pH Units Ur Specific [place] (1.010-1.025) Urine Protein (Neg-Trace) mg/dL Urine Glucose (UA) (Normal) mg/dL Urine Ketones (Negative) mg/dL Urine Blood (Negative) Urine Nitrite (Negative) Urine Bilirubin (Negative) Urine Urobilinogen (Normal) mg/dL Ur Leukocyte Esterase (Negative) Urine Microscopic RBC (0-3) per hpf Urine Microscopic WBC (0-3) per hpf Ur Squamous Epith Cells (None-Few) per lpf Urine Bacteria (None-Few) per hpf Hyaline Casts (None-Few) per lpf Ur Culture Indicated? (NO) 02/06/18 02/06/18 Range/Units 15:52 16:29 WBC (4.3-11.1) K/mcL RBC (3.82-4.97) M/mcL Hgb (11.5-15.4) g/dL Hct (35.3-44.9) % MCV (83.0-100.0) fL MCH (28.0-33.3) pg MCHC (31.6-35.5) g/dL RDW (11.5-14.5) % Plt Count (140-400) K/mcL MPV (9.4-12.4) fL Immature Gran % (0-4) % Seg Neutrophils % % Lymphocytes % % Monocytes % % Eosinophils % % Basophils % % Neutrophils # (1.6-8.9) K/mcL Lymphocytes # (0.6-4.6) K/mcL Monocytes # (0.0-1.3) K/mcL Eosinophils # (0.0-0.6) K/mcL Basophils # (0.0-0.2) K/mcL PT (9.4-12.1) Seconds INR APTT (26.0-36.0) Seconds Sodium (136-145) mEq/L Potassium (3.5-5.1) mEq/L Chloride (98-107) mEq/L Carbon Dioxide (23-29) mEq/L BUN (6-20) mg/dL Creatinine (0.60-1.20) mg/dL Est GFR ( Amer) (> 60) Est GFR (Non-Af Amer) (> 60) BUN/Creatinine Ratio (6-26) Glucose (70-105) mg/dL Calculated Osmolality (280-300) Calcium (8.6-10.3) mg/dL Troponin I (< 0.04) ng/mL TSH 1.614 (0.340-5.600) mcIU/mL Urine Color Yellow (Yellow) Urine Clarity Cloudy A (Clear) Urine pH 6.5 (5.0-8.0) pH Units Ur Specific [place] 1.012 (1.010-1.025) Urine Protein Negative (Neg-Trace) mg/dL Urine Glucose (UA) Normal (Normal) mg/dL Urine Ketones Negative (Negative) mg/dL Urine Blood Negative (Negative) Urine Nitrite Negative (Negative) Urine Bilirubin Negative (Negative) Urine Urobilinogen Normal (Normal) mg/dL Ur Leukocyte Esterase Negative (Negative) Urine Microscopic RBC 5-15 H (0-3) per hpf Urine Microscopic WBC 5-15 H (0-3) per hpf Ur Squamous Epith Cells Many H (None-Few) per lpf Urine Bacteria Moderate H (None-Few) per hpf Hyaline Casts None Seen (None-Few) per lpf Ur Culture Indicated? NO (NO) - Radiology Data Radiology results reviewed: Yes I reviewed the patient's radiology results. Head CT 02/06/18 15:07 IMPRESSION: Stable CT brain with no acute intracranial abnormality and chronic findings as described. D/ / Ollie Garcia MD / Ollie Garcia MD Interpreting Provider: Ollie Garcia MD
[2018-02-06 16:13] LABS: Basophils % 0.5 %; Eosinophils # 0.1 K/mcL (0.0-0.6); Eosinophils % 1.1 %; Hematocrit 45.6 % (35.3-44.9); Hemoglobin 15.2 g/dL (11.5-15.4); Immature Granulocytes % 0.4 % (0-4); Lymphocytes # 2.4 K/mcL (0.6-4.6); Lymphocytes % 28.2 %; Mean Corpuscular HGB Conc 33.3 g/dL (31.6-35.5); Mean Corpuscular Hemoglobin 31.4 pg (28.0-33.3); Mean Corpuscular Volume 94.2 fL (83.0-100.0); Mean Platelet Volume 10.1 fL (9.4-12.4); Monocytes # 0.4 K/mcL (0.0-1.3); Monocytes % 4.4 %; Neutrophils # 5.5 K/mcL (1.6-8.9); Platelet Count 264 K/mcL (140-400); Red Blood Count 4.84 M/mcL (3.82-4.97); Red Cell Distribution Width 12.2 % (11.5-14.5); Segmented Neutrophils % 65.4 %
[2018-02-06 16:22] LABS: INR 0.9; Prothrombin Time 10.1 Seconds (9.4-12.1)
[2018-02-06 16:25] LABS: Activated Partial Thrombo Time 28.7 Seconds (26.0-36.0)
[2018-02-06 16:28] LABS: BUN/Creatinine Ratio 10 (6-26); Blood Urea Nitrogen 11 mg/dL (6-20); Calcium 9.3 mg/dL (8.6-10.3); Carbon Dioxide 30 mEq/L (23-29); Chloride 106 mEq/L (98-107); Glucose 90 mg/dL (70-105); Osmolality,Calculated 289 (280-300); Sodium 140 mEq/L (136-145); eGFR For African Americans > 60 (> 60); eGFR For Non-African Americans 53 (> 60)
[2018-02-06 16:29] LABS: Troponin I < 0.03 ng/mL (< 0.04)
[2018-02-06 16:34] LABS: Bilirubin,Urine Negative (Negative); Blood,Urine Negative (Negative); Clarity,Urine Cloudy (Clear); Color,Urine Yellow (Yellow); Glucose,Urine (UA) Normal (Normal); Ketones,Urine Negative (Negative); Leukocyte Esterase,Urine Negative (Negative); Nitrite,Urine Negative (Negative); PH,Urine 6.5 pH Units (5.0-8.0); Protein,Urine Negative (Neg-Trace); Specific Gravity,Urine 1.012 (1.010-1.025); Urobilinogen,Urine Normal (Normal)
[2018-02-06 16:35] LABS: Bacteria,Urine Moderate per hpf (None-Few); Hyaline Casts,Urine None Seen per lpf (None-Few); Squamous Epithelial Cell,Urine Many per lpf (None-Few)
[2018-02-06] MEDS ORDERED: Naloxone 0.4 MG/ML INJ IVP PRN (18:12)
[2018-02-06] MEDS ORDERED: Aspirin 81 MG TAB.CHEW PO SCH (18:15)
[2018-02-06] MEDS ORDERED: *HR* LORazepam 2 MG/ML VIAL IVP ONE (18:17)
--- NOTE | 2018-02-06 18:35 | Internal Med History&Physical ---
Date of Encounter: 02/06/18 Time of Encounter: 18:21 Assessment and Plan (1) Left-sided weakness Current visit: Yes Status: Acute Left-sided weakness consult. Likely TIA, we will continue her home dose aspirin 325 minute 1 daily Will order brain MRI to rule out stroke (2) GERD (gastroesophageal reflux disease) Current visit: Yes Status: Chronic Continue Protonix Qualifiers: Esophagitis presence: esophagitis presence not specified Qualified Code(s) : K21.9 - Gastro-esophageal reflux disease without esophagitis (3) Bipolar 1 disorder Current visit: No Status: Chronic Continue home medication (4) CVA (cerebral vascular accident) Current visit: Yes Status: Chronic Patient had acute stroke in May 2017, was concerned for cardiogenic embolic events. she was placed on full dose aspirin 325 mg daily. will continue the same dose. Patient had a colonoscopy done 2 weeks ago, hemoglobin has been stable. Qualifiers: CVA mechanism: embolism Precerebral and cerebral artery: middle cerebral artery Laterality of affected vessel: right Qualified Code(s): I63.411 - Cerebral infarction due to embolism of right middle cerebral artery (5) HTN (hypertension) Current visit: Yes Status: Chronic Qualifiers: Hypertension type: essential hypertension Qualified Code(s): I10 - Essential (primary) hypertension (6) Tobacco abuse Current visit: Yes Status: Chronic Smoking cessation discussed, she declined nicotine patch Internal Medicine - H&P: HPI Chief complaint: left sided weakness Admitted From: Home Plans for Post Hospital Care: Home History of present illness: Ms. Rivera is a 57 year old female who has a history of hypertension, stroke and bipolar, hypothyroidism presented to emergency room for left-sided weakness for 2 days. Patient had acute stroke in May 2017 MRI showed right thalama and right basal ganglia. She was discharged to the rehabilitation with ASA 325 mg daily. Patient states that after rehabilitation her weakness improved. PAtient has been taking Asprin 325 mg 2 tablets daily for stroke prevention. 2 weeks ago she was scheduled to have colonoscopy, Her GI physician took her off aspirin for 2 weeks before procedure and 2 weeks after procedure. she is on 81 mg aspirin during this period. Patient stated that she started to have left-sided weakness and tingling numbing sensation 2 days ago, on and off she did not want tell anyone. But today she felt the weakness got worse and dropped a cup from her left hand. In ER, Her NIH score only 1, CT scan is negative she is not a candidate for TPA. The patient is admitted for rule out a stroke. When I saw the patient her left-sided weakness resolved. She is still complaining of numbing tingling sensation from left arm. She is alert oriented to 3, no slurred speech and no facial droop. will order MRI Past Med Surg Social Fam HX - Past Medical History Medical history: arthritis, asthma, hypertension, thyroid disease Psychiatric history: anxiety, bipolar, depression - Past Surgical History Surgical History: , cholecystectomy, herniorrhaphy, knee replacement - Social History Smoking Status: Current every day smoker Smokeless Tobacco Status: No Alcohol use: none Drug use: none - Family History Mother Hx Family Cardiac Disorders: Yes Hx Family Cancer: Yes Father Hx Family Cardiac Disorders: Yes Internal Medicine - H&P: Meds Aspirin [Ecotrin] 325 mg PO DAILY 12/12/17 [History] Atorvastatin [Lipitor] 80 mg PO HS 12/12/17 [History] FLUoxetine HCl [Fluoxetine HCl] 10 mg PO DAILY 12/12/17 [History] Levothyroxine [Synthroid] 175 mcg PO 0630 12/12/17 [History] Losartan Potassium [Cozaar] 100 mg PO DAILY 12/12/17 [History] traZODone [TraZODone] 50 mg PO HS 12/12/17 [History] lamoTRIgine [Lamictal] 100 mg PO QAM 12/13/17 [History] lamoTRIgine [Lamictal] 200 mg PO HS 12/13/17 [History] Pantoprazole Sodium [Protonix] 40 mg PO DAILY #30 tablet. 12/21/17 [Rx] Sucralfate [Carafate] 1 gm PO QIDAC 01/26/18 [History] 3 Allergy/AdvReac Type Severity Reaction Status Date / Time No Known Allergies Allergy Verified 01/26/18 11:56 All Systems PM: A 10-system review of systems was performed and is negative for pertinent findings except as documented above in the HPI. - Constitutional Vitals: Temp Pulse Resp BP Pulse Ox 97.9 F 53 18 116/75 96 02/06/18 14:53 02/06/18 15:52 02/06/18 15:52 02/06/18 15:52 02/06/18 15:52 General appearance: Present: A&O X 3, pleasant, obese Exam: CONSTITUTIONAL: Patient appears as an age appropriate female well developed, in no acute distress. EYES Clear sclerae, bilateral pupils are equal, reactive to light and accommodation. Extraocular movements are intact RESPIRATORY: No accessory muscle use, bilateral clear to auscultation, no wheezing, no crackles/rales. CARDIOVASCULAR: Regular heart rate, normal S1 and S2, no murmurs GASTROINTESTINAL: bowel sounds present, soft, no tenderness. No hepatosplenomegaly. No bilateral CVA tenderness MUSCULOSKELETAL: Joints in normal range of motion, no clubbing, no edema, no cyanosis. Bilateral peripheral pulses 2+ LYMPHATIC no lymphadenopathy in neck, groin and axilla bilaterally, no thyromegaly. NEUROLOGIC: CN II to XII are grossly intact, no focal neurological deficit. Deep tendon reflexes 2+ bilaterally. Normal light touch sensation to upper and lower extremity PSYCHIATRIC: Oriented x3, with good insight, mood is euthymic. No hallucinations or delusions. SKIN: Skin warm and dry, no rashes, no open wound. Internal Med - H&P Results - Labs CBC & Chem 7: 02/06/18 15:52 02/06/18 15:52
[2018-02-06] MEDS: Sucralfate 1 GM TABLET PO SCH (21:00)
[2018-02-06] MEDS: lamoTRIgine 100 MG TABLET PO SCH (21:00)
[2018-02-06] MEDS: Aspirin Enteric Coated 325 MG Tablet PO SCH (21:00)
[2018-02-06] MEDS: traZODone 50 MG TABLET PO SCH (23:04)
[2018-02-07] MEDS: Sucralfate 1 GM TABLET PO SCH ×4 (06:29→20:58)
[2018-02-07] MEDS: Aspirin Enteric Coated 325 MG Tablet PO SCH (08:00)
[2018-02-07] MEDS: FLUoxetine HCl 10 MG CAPSULE PO SCH (08:00)
[2018-02-07] MEDS: lamoTRIgine 100 MG TABLET PO SCH ×2 (08:00→20:58)
--- NOTE | 2018-02-07 14:46 | Electrocardiograph Report ---
[address] [address] Test Date: 2018-02-06 Pat Name: Patrick Rivera Department: 103 Room: 3B Gender: F Production Quality Analyst: REJI : 1960 Requested By: Leelee Oliver Order Number: [id number] Reading MD: Lamine Chapman Measurements Intervals [place] Rate: 60 P: 33 OK: 182 QRS: 42 QRSD: 99 T: 22 QT: 413 QTc: 415 Interpretive Statements SINUS RHYTHM BASELINE ARTIFACT Electronically Signed On 02-07-2018 14:44:43 EDT by Lamine Chapman
--- NOTE | 2018-02-07 15:48 | Internal Med Progress Note ---
Date of Encounter: 02/07/18 Time of Encounter: 13:30 - Assessment and plan (1) Left-sided weakness Current Visit: Yes Status: Acute Assessment and plan: Acute. Pt with left-sided weakness x 2 days prior to admission. Prior CVA history in May,. Pt went to rehab and was placed on 325mg ASA daily. It was stopped for colonoscopy 2 weeks ago. Pt with obvious left sided weakness to upper extremities. Grasp weaker on left than right, no pronator drift. BLE weak, left weaker than right. Brain MRI negative, head CT negative. NIH 1 in the ER. MRA head/neck from May, shows marked attenuation of the mid to distal posterior cerebral arteries may reflect high-grade stenosis or acute thrombosis , mild bilateral proximal internal carotid artery stenosis, no vertebral artery stenosis. Continue aspirin 325 mg by mouth daily Continue Lipitor 80 mg at bedtime Continue telemetry Neurology has been consulted. I appreciate their recommendations and consultation. (2) Obesity (BMI 30-39.9) Current Visit: Yes Status: Chronic Assessment and plan: Lifestyle modifications. (3) Transient cerebral ischemia Current Visit: Yes Status: Acute Assessment and plan: Prior history of TIA, CVA. Head CT negative Brain MRI negative for acute, stable lacunes within right basal ganglia and right thalamus. Remote right occipital lobe infarct, larger in size since previous exam. Stable mild chronic microvascular disease, stable moderate right mastoiditis mild left mastoiditis. Plan as above Head CT 02/06/18 15:07 IMPRESSION: Stable CT brain with no acute intracranial abnormality and chronic findings as described. D/ / Ollie Garcia MD / Ollie Garcia MD Interpreting Provider: Ollie Garcia MD Brain MRI 02/07/18 10:09 IMPRESSION: No evidence of acute intracranial abnormality. Stable lacunes within the right basal ganglia and right thalamus. Small old right occipital lobe infarct which has slightly increased in size since previous exam. Stable mild chronic microvascular disease within the periventricular white matter. Stable moderate right mastoiditis and mild left mastoiditis. D/ / 02/07/2018 11:06:15 Manoj Mock MD / feng Interpreting Provider: Manoj Mock MD Qualifiers: Transient cerebral ischemia type: unspecified Qualified Code(s): G45.9 - Transient cerebral ischemic attack, unspecified (4) CVA (cerebral vascular accident) Current Visit: Yes Status: Chronic Assessment and plan: Prior history. Patient denies deficits after rehabilitation. Plan as above Qualifiers: CVA mechanism: embolism Precerebral and cerebral artery: middle cerebral artery Laterality of affected vessel: right Qualified Code(s): I63.411 - Cerebral infarction due to embolism of right middle cerebral artery (5) GERD (gastroesophageal reflux disease) Current Visit: Yes Status: Chronic Assessment and plan: Chronic. Continue Prilosec 20 mg daily. Qualifiers: Esophagitis presence: esophagitis presence not specified Qualified Code(s) : K21.9 - Gastro-esophageal reflux disease without esophagitis (6) HTN (hypertension) Current Visit: Yes Status: Chronic Assessment and plan: Chronic. Blood pressure is well controlled. Continue home medications. Qualifiers: Hypertension type: essential hypertension Qualified Code(s): I10 - Essential (primary) hypertension (7) Tobacco abuse Current Visit: Yes Status: Chronic Assessment and plan: Chronic. Patient discussed desire to stop smoking. Patient states that she has tried everything over time. Due to her bipolar disease, I do not believe she is a safe candidate for Chantix. Recommend continued encouragement from next provider to care for pt. Daughter seems motivated to help pt to stop smoking. (8) Bipolar 1 disorder Current Visit: Yes Status: Chronic Assessment and plan: Chronic. Continue home medications. (9) DVT prophylaxis Current Visit: No Status: Acute Assessment and plan: SCDs ordered. Encourage ambulation. - Time Spent With Patient less than 15 minutes - Subjective Interval history: Patient was seen and assessed at 1330 at bedside. I initially saw the patient alone, that Actifed to see patient and family. All questions were answered. He reports increased stress at home due to extended family, including 4 grandchildren, living with her. She states that she never gets a break and that they cause her a lot of stress. Patient is amenable to staying for evaluation by neurology, as well as PT/OT. She denies headache, blurred vision , neck pain, chest pain, shortness of breath, abdominal pain, nausea, vomiting, diarrhea. - Constitutional Vitals: Temp Pulse Resp BP Pulse Ox 96.8 F L 60 14 113/65 96 02/07/18 11:17 02/07/18 11:17 02/07/18 11:17 02/07/18 11:17 02/07/18 11:17 General appearance: Present: A&O X 3, pleasant, no acute distress, obese, answers questions appropriately. Absent: mild distress - Head Head exam: Present: atraumatic, normal inspection, normocephalic - Eye Eye exam: Present: conjuntiva pink, sclera anicteric - Neck Neck exam general surgery: Present: supple, trachea midline. Absent: lymphadenopathy, tenderness - Respiratory Respiratory exam: Present: CTAB. Absent: accessory muscle use, rales, respiratory distress, rhonchi, wheezes - Cardiovascular Cardiovascular exam: Present: RRR, +S1, +S2. Absent: diastolic murmur, gallop, rubs, systolic murmur - GI/Abdominal GI/Abdominal exam: Present: normal bowel sounds, soft, no peritoneal signs. Absent: distended, hepatomegaly, tenderness - Extremities Exam Extremities exam: Present: normal capillary refill, normal inspection, warm, radial pulses palpable and symmetrical. Absent: calf tenderness, cyanotic, pedal edema, tenderness - Neurological Exam Neurological exam: Present: alert, CN II-XII intact, oriented X3, no focal deficits. Absent: motor sensory deficit, strengths equal and symetr throughout , pronater drift, facial droop, speech deficit - Skin Skin exam: Present: dry, intact, normal color, warm. Absent: rash Internal Medicine: Result - Labs CBC & Chem 7: 02/06/18 15:52 02/06/18 15:52 - ABG Interpretation ABG results: PT/INR, D-dimer PT 10.1 Seconds (9.4-12.1) 02/06/18 15:52 - Impressions Impressions Brain MRI 02/07/18 10:09 IMPRESSION: No evidence of acute intracranial abnormality. Stable lacunes within the right basal ganglia and right thalamus. Small old right occipital lobe infarct which has slightly increased in size since previous exam. Stable mild chronic microvascular disease within the periventricular white matter. Stable moderate right mastoiditis and mild left mastoiditis. D/ / 02/07/2018 11:06:15 Manoj Mock MD / feng Interpreting Provider: Manoj Mock MD Consult Discharge Plan - Plan Referrals: Joey Cherry MD [Primary Care Provider] -
--- NOTE | 2018-02-07 18:41 | Neurology - Consult Note ---
Date of Encounter: 02/07/18 Time of Encounter: 18:35 Assessment and Plan (1) Left-sided weakness Current Visit: Yes Status: Acute I suspect that the new onset left upper extremity pain and left lower sternal the pain are more than likely due to mechanical factors. It is possible that she may have some residual left-sided weakness from the old right thalamic stroke. However the diffusion imaging does not reveal any evidence of acute infarct. I would not expect pain to be a major presentation in the extremities involving the acute infarct. The pain is also reproducible to deep touch in the left upper extremity. At this juncture I would simply maintain her current aspirin regimen at 325 mg daily along with her statin therapy. Dietary modification may be in order. I would like to follow up with her in my office as an outpatient to further look into the possibility of cervical radiculopathy. She did ask me whether not that stress could possibly be triggering factor. Certainly stress can cause almost any type of somatic symptom imaginable. However recommend ruling out other organic factors as an outpatient. I recommend that she see me in my office for EMG of the left upper extremity and perhaps MRI of the cervical spine. Otherwise she may discharge her at your discretion. History of Present Illness HPI: Ms. Rivera is a 57 year old female with a prior medical history of bihemispheric cerebral infarcts who is seen for neurologic evaluation to rule out recent cerebral infarct. Patient states that about 2 days or so prior to the day of admission she was at home watching television and she suddenly experienced intense pain of the left upper extremity radiating to left lower extremity. She states that she then dropped her a cup coffee. The pain is resolving however has not completely gone. Denies any acute visual changes. It seems that myofascial pain is the main factor here of the left arm and left leg. However she denies any speech difficulty denies any new onset paresthesias. She does have some difficulty with things appearing fuzzy on the left. Denies any speech or language problems. She has a long history of migraine headaches. She describes what sounds like a scintillating scotoma from time to time. She is now wanting to go home. I did review her most recent MRI scan which reveals no evidence of any acute ischemic diffusion perfusion mismatch. I did also review her MRI from May 2017 which revealed an acute infarct in the right thalamus along with a few scattered punctate infarcts bilaterally. There are also lacunar infarcts present in the deep white matter, as well as scattered bilateral white matter hyperintensities. Based on the pain component of her presentation I would not expect cerebral infarct manifest in this manner. Past Med Surg Social Fam HX - Past Medical History Medical history: arthritis, asthma, hypertension, thyroid disease Psychiatric history: anxiety, bipolar, depression - Past Surgical History Surgical History: , cholecystectomy, herniorrhaphy, knee replacement - Social History Smoking Status: Current every day smoker Packs per day: 1 11/09 Smokeless Tobacco Status: No Alcohol use: none Drug use: none - Family History Mother Living Status: Hx Family Cardiac Disorders: Yes Hx Family Cancer: Yes (Lung) Father Living Status: Age at : 80 Hx Family Cardiac Disorders: Yes Hx Family Respiratory Disorders: Yes (COPD) Maternal Grandmother Living Status: Hx Family Cancer: Yes (Throat) Medications and Allergies Aspirin [Ecotrin] 325 mg PO DAILY 12/12/17 [History] Atorvastatin [Lipitor] 80 mg PO HS 12/12/17 [History] FLUoxetine HCl [Fluoxetine HCl] 10 mg PO DAILY 12/12/17 [History] Levothyroxine [Synthroid] 175 mcg PO 0630 12/12/17 [History] Losartan Potassium [Cozaar] 100 mg PO DAILY 12/12/17 [History] traZODone [TraZODone] 50 mg PO HS 12/12/17 [History] lamoTRIgine [Lamictal] 100 mg PO QAM 12/13/17 [History] lamoTRIgine [Lamictal] 200 mg PO HS 12/13/17 [History] Pantoprazole Sodium [Protonix] 40 mg PO DAILY #30 tablet. 12/21/17 [Rx] Sucralfate [Carafate] 1 gm PO QIDAC 01/26/18 [History] 3 Allergy/AdvReac Type Severity Reaction Status Date / Time No Known Allergies Allergy Verified 01/26/18 11:56 All Systems: The remainder of the systems were reviewed and are negative Review of Systems: 10 point review of systems is consistent with a history of present illness and is otherwise negative. Physical Examination - Vital Signs Vital Signs: Initial Vital Signs Temp Pulse Resp BP Pulse Ox 97.9 F 78 16 116/75 97 02/06/18 14:53 02/06/18 14:53 02/06/18 14:53 02/06/18 14:53 02/06/18 14:53 - Neurologic Sensorimotor examination: other (Left hemihypoesthesia is present.) Motor examination - right side: 55: deltoids, biceps, triceps, security operations specialist, hip flexors, tibialis Anterior, quadriceps, toe extension (EHL), plantarflexion Motor examination - left side: 5: deltoids, biceps, triceps, hip flexors, security operations specialist , quadriceps, tibialis Anterior, toe extension (EHL), plantarflexion Reflexes: Biceps: 2+, Triceps: 2+, Brachioradialis: 2+, Achilles: 1+ Mental Status Examination: awake, alert, oriented to person, oriented to place, oriented to time, follows commands appropriately, answers questions appropriately, no agnosia, no aphasia, no aproxia Cranial nerve examination: PERRL, EOMI, visual foster intact, corneal reflexes brisk symmetrically, sensory to face intact, mastication intact, no facial asymmetry is present, no dysarthria, hearing is intact symmetrically, soft palate elevates bilaterally upon phonation, gag reflex intact, flexes SCM and trapezius muscles symmetrically with full power, tongue protrudes midline, no atrophy or facial fasiculations present Results - Laboratory Findings CBC and BMP: 02/06/18 15:52 02/06/18 15:52 Abnormal lab findings: Abnormal lab results Hct 45.6 % (35.3-44.9) H 02/06/18 15:52 Carbon Dioxide 30 mEq/L (23-29) H 02/06/18 15:52 Est GFR (Non-Af Amer) 53 (> 60) L 02/06/18 15:52 POC Glucose 122 mg/dL (58-89) H 02/06/18 14:57 Urine Clarity Cloudy (Clear) A 02/06/18 16:29 Urine Microscopic RBC 5-15 per hpf (0-3) H 02/06/18 16:29 Urine Microscopic WBC 5-15 per hpf (0-3) H 02/06/18 16:29 Ur Squamous Epith Cells Many per lpf (None-Few) H 02/06/18 16:29 Urine Bacteria Moderate per hpf (None-Few) H 02/06/18 16:29 Consult Discharge Plan - Plan Referrals: Joey Cherry MD [Primary Care Provider] -
[2018-02-07] MEDS: traZODone 50 MG TABLET PO SCH (23:24)
[2018-02-07] MEDS ORDERED: Acetaminophen 325 MG TABLET PO PRN (23:42)
[2018-02-08 05:56] LABS: Basophils % 0.5 %; Eosinophils # 0.1 K/mcL (0.0-0.6); Eosinophils % 1.5 %; Hematocrit 41.4 % (35.3-44.9); Immature Granulocytes % 0.2 % (0-4); Lymphocytes # 3.4 K/mcL (0.6-4.6); Lymphocytes % 41.7 %; Mean Corpuscular HGB Conc 32.9 g/dL (31.6-35.5); Mean Corpuscular Volume 94.3 fL (83.0-100.0); Mean Platelet Volume 10.3 fL (9.4-12.4); Monocytes # 0.4 K/mcL (0.0-1.3); Monocytes % 5.1 %; Neutrophils # 4.2 K/mcL (1.6-8.9); Platelet Count 242 K/mcL (140-400); Red Blood Count 4.39 M/mcL (3.82-4.97); Red Cell Distribution Width 12.1 % (11.5-14.5)
[2018-02-08 05:57] LABS: Hemoglobin 13.6 g/dL (11.5-15.4)
[2018-02-08 06:13] LABS: BUN/Creatinine Ratio 14 (6-26); Blood Urea Nitrogen 15 mg/dL (6-20); Carbon Dioxide 28 mEq/L (23-29); Chloride 107 mEq/L (98-107); Glucose 97 mg/dL (70-105); Osmolality,Calculated 287 (280-300); Sodium 138 mEq/L (136-145); eGFR For African Americans > 60 (> 60); eGFR For Non-African Americans 52 (> 60)
[2018-02-08] MEDS: Aspirin Enteric Coated 325 MG Tablet PO SCH (08:02)
[2018-02-08] MEDS: Sucralfate 1 GM TABLET PO SCH ×2 (08:02→12:05)
[2018-02-08] MEDS: FLUoxetine HCl 10 MG CAPSULE PO SCH (08:02)
[2018-02-08] MEDS: lamoTRIgine 100 MG TABLET PO SCH (08:03)
[2018-02-08 10:39] VITALS: BP 115/62
--- NOTE | 2018-02-08 10:47 | Discharge Summary ---
- NOTES TO OUTPATIENT PROVIDER Notes to Outpatient Provider: To follow up with Neurology service as outpatient for EMG of the left upper exteemity and possible MRI of cervical spine. Follow with PCP within the week. Date of Encounter: 02/08/18 Time of Encounter: 10:44 - Discharge Diagnosis (1) Left-sided weakness Priority: Primary Status: Acute Comments: According to neurology note he suspects that this new onset left upper extremity pain and left lower sternal pain are more likely due to mechanical factors. He would like to follow up in the office with EMG of the left upper extremity and possibly MRI of the cervical spine. 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 Continue aspirin 325 daily Continue Lipitor 80 mg at bedtime Lifestyle modification including Dietary modification and stress reduction modalities (2) HTN (hypertension) Priority: Primary Status: Chronic Comments: Blood pressure is stable Qualifiers: Hypertension type: essential hypertension Qualified Code(s): I10 - Essential (primary) hypertension (3) Bipolar 1 disorder Priority: Primary Status: Chronic Comments: Stable behavior continue home medications (4) Tobacco abuse Priority: Primary Status: Chronic Comments: Cessation recommended (5) GERD (gastroesophageal reflux disease) Priority: Primary Status: Chronic Comments: Resume home protonix and carafate dosing Qualifiers: Esophagitis presence: esophagitis presence not specified Qualified Code(s) : K21.9 - Gastro-esophageal reflux disease without esophagitis (6) Transient cerebral ischemia Priority: Primary Status: Resolved Comments: Prior history of TIA and CVA. Head CT was negative Brain MRI negative for acute processes. Stable lacunes within the right basal ganglia and right thalamus MRI reviewed by neurology service and believes symptoms are related to mechanical process Qualifiers: Transient cerebral ischemia type: unspecified Qualified Code(s): G45.9 - Transient cerebral ischemic attack, unspecified (7) Obesity (BMI 30-39.9) Priority: Primary Status: Chronic Comments: Lifestyle and dietary modifications Hospital course: Ms. Rivera is a 57 year old female with left sided weakness. CT of the head and MR completed. Followed by neurology service who is recommending outpatient EMG of the left upper extremity and possible MRI of the cervical spine. She will continue aspirin 325 mg daily, Lipitor 80 mg at bedtime daily and follow up as directed. Please refer to the assessment and plan for further details of this admission. PT saw the patient and she has no needs for discharge. Discharge discussed with: patient, nurse Time spent discussing smoking cessation with patient: 3 to 10 minutes - Time Spent with Patient Total time spent providing and/or coordinating discharge services: Less than 30 minutes - Discharge Medications Home Medications: Aspirin [Ecotrin] 325 mg PO DAILY 12/12/17 [History] Atorvastatin [Lipitor] 80 mg PO HS 12/12/17 [History] FLUoxetine HCl [Fluoxetine HCl] 10 mg PO DAILY 12/12/17 [History] Levothyroxine [Synthroid] 175 mcg PO 0630 12/12/17 [History] Losartan Potassium [Cozaar] 100 mg PO DAILY 12/12/17 [History] traZODone [TraZODone] 50 mg PO HS 12/12/17 [History] lamoTRIgine [Lamictal] 100 mg PO QAM 12/13/17 [History] lamoTRIgine [Lamictal] 200 mg PO HS 12/13/17 [History] Pantoprazole Sodium [Protonix] 40 mg PO DAILY #30 tablet. 12/21/17 [Rx] Sucralfate [Carafate] 1 gm PO QIDAC 01/26/18 [History] Allergies/Adverse Reactions: 3 Allergy/AdvReac Type Severity Reaction Status Date / Time No Known Allergies Allergy Verified 01/26/18 11:56 Date of admission: 02/06/18 17:18 Primary care physician: Joey Cherry MD Consults: 02/06/18 18:15 Consult to Occupational Therapy [CONS] Routine Comment: Evaluate, develop and implement POC Reason for Consult: left weakness Does patient have active BEDREST order?: No Is patient medically & hemodynamically stable?: Yes Patient assessed for mobility or mobilized this visit?: Yes Consult to Physical Therapy [CONS] Routine Comment: Evaluate, develop and implement POC Reason for Consult: left sided weakness Does patient have active BEDREST order?: No Is patient medically & hemodynamically stable?: Yes Patient assessed for mobility or mobilized this visit?: Yes 02/07/18 11:40 Consult to Physics Technical Officer [CONS] Routine Reason for SW Consult: POA paperwork 02/07/18 15:36 Consult to Neurology [CONS] Routine Consulting Provider: [facility] Reason for Consult: TIA- pt had colonoscopy, ASA was stopped for 2 weeks. Pt with left sided weakness that did not resolve. Brain MRI negative. Prior MRA head and neck in 05/23: mild bilateral proximal internal carotid artery stenosis, no vertebral. Time Notified: 15:42 Call Completed: No Discharging clinician: Henny Roberts Anticipated date of discharge: 02/08/18 - Constitutional Vitals: Temp Pulse Resp BP Pulse Ox 98.7 F 53 16 115/62 96 02/08/18 10:38 02/08/18 10:38 02/08/18 10:38 02/08/18 10:38 02/08/18 10:38 General appearance: Present: A&O X 3, pleasant, no acute distress, obese, answers questions appropriately. Absent: mild distress - Head Head exam: Present: atraumatic, normocephalic - Eye Eye exam: Present: PERRL, conjuntiva pink, sclera anicteric Pupils: Present: PERRL - Neck Neck exam general surgery: Present: supple, trachea midline. Absent: lymphadenopathy - Respiratory Respiratory exam: Present: CTAB. Absent: accessory muscle use, rales, rhonchi, wheezes - Cardiovascular Cardiovascular exam: Present: RRR, +S1, +S2. Absent: diastolic murmur, gallop, rubs, systolic murmur - GI/Abdominal GI/Abdominal exam: Present: normal bowel sounds, soft, no peritoneal signs. Absent: distended, tenderness - Extremities Exam Extremities exam: Present: warm, radial pulses palpable and symmetrical. Absent : calf tenderness, cyanotic, pedal edema - Neurological Exam Neurological exam: Present: alert, CN II-XII intact, normal gait, oriented X3, no focal deficits. Absent: motor sensory deficit, pronater drift, facial droop , speech deficit - Skin Skin exam: Present: dry, intact, normal color, warm - Patient Status Disposition: Home, Self-Care Condition: Good Functional capacity at discharge: independent ambulation Overall status at discharge: patient is back to baseline - Discharge Instructions Follow Up With: Huber Yeh DO [Partnered Physician] - Joey Cherry MD [Primary Care Provider] - - Diet and Activity Activity: resume usual activities as tolerated Diet: low fat, low cholesterol, low salt diet
== END 2018-02-08 12:45 | disposition home or self-care (01) ==
LOC: 3BNU 14:52 → EMEROO 14:52 → MERGE 17:18 → 3BNU 18:29
PROVIDERS: ADMIT Hospitalist; ATTEND Registered Nurse

== ENCOUNTER 2020-07-24 05:30 | Inpatient (IN) ==
[2020-07-24] MEDS ORDERED: Isovue-370 500 ML BOTTLE IVP ONE (05:35)
[2020-07-24 05:52] LABS: Hematocrit 44.6 % (35.3-44.9); Hemoglobin 14.7 g/dL (11.5-15.4); Mean Corpuscular Hemoglobin 33.5 pg (28.0-33.3); Mean Corpuscular Volume 101.6 fL (83.0-100.0); Mean Platelet Volume 10.2 fL (9.4-12.4); Platelet Count 261 K/mcL (140-400); Red Blood Count 4.39 M/mcL (3.82-4.97); Red Cell Distribution Width 12.3 % (11.5-14.5)
[2020-07-24 05:57] LABS: INR 0.9; Prothrombin Time 10.7 Seconds (9.4-12.1)
[2020-07-24 06:00] LABS: Activated Partial Thrombo Time 32.9 Seconds (26.0-36.0)
[2020-07-24 06:14] LABS: Bilirubin,Urine Negative (Negative); Blood,Urine Negative (Negative); Clarity,Urine Clear (Clear); Color,Urine Light-Yellow (Yellow); Glucose,Urine (UA) Normal (Normal); Ketones,Urine Negative (Negative); Leukocyte Esterase,Urine Negative (Negative); Nitrite,Urine Negative (Negative); Protein,Urine Trace mg/dL (Neg-Trace); Specific Gravity,Urine 1.023 (1.010-1.025)
[2020-07-24 06:28] LABS: BUN/Creatinine Ratio 7 (6-26); Blood Urea Nitrogen 7 mg/dL (6-20); Calcium 8.9 mg/dL (8.6-10.3); Carbon Dioxide 26 mEq/L (23-29); Chloride 108 mEq/L (98-107); Creatine Kinase 58 Units/L (30-223); Ethanol < 10 mg/dL (Less than 10); Glucose 103 mg/dL (70-105); Osmolality,Calculated 290 (280-300); Potassium 3.7 mEq/L (3.5-5.1); Sodium 141 mEq/L (136-145); Troponin I < 0.03 ng/mL (< 0.04); eGFR For African Americans > 60 (> 60); eGFR For Non-African Americans 52 (> 60)
[2020-07-24] MEDS ORDERED: Naloxone 0.4 MG/ML INJ IVP PRN (07:40)
[2020-07-24] MEDS ORDERED: Perflutren Lipid Microsphere 1.3 ML in 0.9 % Sodium Chloride 8.7 ML IVP PRN (07:44)
[2020-07-24] MEDS ORDERED: *HR* OxyCODONE/APAP 7.5/325 TABLET PO ONE (07:48)
[2020-07-24 08:23] LABS: Thyroid Stimulating Hormone 9.615 mcIU/mL (0.340-5.600)
[2020-07-24] MEDS: Aspirin Enteric Coated 325 MG Tablet PO SCH (10:16)
[2020-07-24] MEDS: FLUoxetine HCl 10 MG CAPSULE PO SCH (10:16)
[2020-07-24] MEDS: *HR* OxyCODONE/APAP 5/325 TABLET PO PRN ×2 (10:16→23:46)
[2020-07-24] MEDS: lamoTRIgine 100 MG TABLET PO SCH (10:16)
[2020-07-24] MEDS: Fluticasone Propionate Nasal 50 MCG/SPRAY BOTTLE NS SCH (11:39)
[2020-07-24] MEDS: *HR* Heparin 5,000 UNIT/ML VIAL SQ SCH ×2 (14:23→20:23)
[2020-07-24] MEDS: traZODone 50 MG TABLET PO SCH (20:23)
[2020-07-25 05:19] LABS: Basophils % 0.4 %; Eosinophils # 0.2 K/mcL (0.0-0.6); Eosinophils % 2.9 %; Hemoglobin 14.1 g/dL (11.5-15.4); Immature Granulocytes % 0.2 % (0-4); Lymphocytes # 2.7 K/mcL (0.6-4.6); Lymphocytes % 33.2 %; Mean Corpuscular HGB Conc 32.8 g/dL (31.6-35.5); Mean Corpuscular Hemoglobin 33.2 pg (28.0-33.3); Mean Corpuscular Volume 101.2 fL (83.0-100.0); Mean Platelet Volume 10.3 fL (9.4-12.4); Monocytes # 0.5 K/mcL (0.0-1.3); Monocytes % 6.1 %; Neutrophils # 4.6 K/mcL (1.6-8.9); Platelet Count 225 K/mcL (140-400); Red Blood Count 4.25 M/mcL (3.82-4.97); Red Cell Distribution Width 12.6 % (11.5-14.5); Segmented Neutrophils % 57.2 %; White Blood Count 8.1 K/mcL (4.3-11.1)
[2020-07-25] MEDS: *HR* Heparin 5,000 UNIT/ML VIAL SQ SCH ×3 (05:51→22:31)
[2020-07-25 07:10] LABS: BUN/Creatinine Ratio 9 (6-26); Blood Urea Nitrogen 9 mg/dL (6-20); Calcium 8.7 mg/dL (8.6-10.3); Carbon Dioxide 24 mEq/L (23-29); Chloride 109 mEq/L (98-107); Chol/HDL Ratio 3.6 (0-4.9); Cholesterol 135 mg/dL (< 200); Glucose 126 mg/dL (70-105); HDL Cholesterol 38 mg/dL (40-59); LDL Cholesterol,Calculated 70 mg/dL (< 100); Osmolality,Calculated 290 (280-300); Potassium 3.5 mEq/L (3.5-5.1); Sodium 140 mEq/L (136-145); Triglycerides 136 mg/dL (< 150); eGFR For African Americans > 60 (> 60); eGFR For Non-African Americans 58 (> 60)
[2020-07-25] MEDS: FLUoxetine HCl 10 MG CAPSULE PO SCH (08:02)
[2020-07-25] MEDS: Aspirin Enteric Coated 325 MG Tablet PO SCH (08:02)
[2020-07-25] MEDS: Fluticasone Propionate Nasal 50 MCG/SPRAY BOTTLE NS SCH ×2 (08:03→08:09)
[2020-07-25] MEDS: lamoTRIgine 100 MG TABLET PO SCH (08:03)
[2020-07-25] MEDS: *HR* OxyCODONE/APAP 5/325 TABLET PO PRN (08:12)
[2020-07-25 11:28] LABS: Estimated Average Glucose 105 mg/dl
[2020-07-25] MEDS: traZODone 50 MG TABLET PO SCH (22:32)
[2020-07-26] MEDS: *HR* OxyCODONE/APAP 5/325 TABLET PO PRN (00:26)
[2020-07-26 01:52] LABS: Basophils % 0.4 %; Eosinophils # 0.3 K/mcL (0.0-0.6); Eosinophils % 3.6 %; Hematocrit 43.4 % (35.3-44.9); Hemoglobin 14.5 g/dL (11.5-15.4); Immature Granulocytes % 0.3 % (0-4); Lymphocytes % 26.9 %; Mean Corpuscular HGB Conc 33.4 g/dL (31.6-35.5); Mean Corpuscular Hemoglobin 33.4 pg (28.0-33.3); Mean Platelet Volume 10.6 fL (9.4-12.4); Monocytes # 0.4 K/mcL (0.0-1.3); Monocytes % 5.1 %; Neutrophils # 4.8 K/mcL (1.6-8.9); Platelet Count 233 K/mcL (140-400); Red Blood Count 4.34 M/mcL (3.82-4.97); Red Cell Distribution Width 12.6 % (11.5-14.5); Segmented Neutrophils % 63.7 %; White Blood Count 7.5 K/mcL (4.3-11.1)
[2020-07-26 02:08] LABS: BUN/Creatinine Ratio 11 (6-26); Blood Urea Nitrogen 10 mg/dL (6-20); Calcium 8.7 mg/dL (8.6-10.3); Carbon Dioxide 23 mEq/L (23-29); Chloride 108 mEq/L (98-107); Glucose 101 mg/dL (70-105); Osmolality,Calculated 287 (280-300); Potassium 3.5 mEq/L (3.5-5.1); Sodium 139 mEq/L (136-145); eGFR For African Americans > 60 (> 60); eGFR For Non-African Americans > 60 (> 60)
[2020-07-26] MEDS: *HR* Heparin 5,000 UNIT/ML VIAL SQ SCH ×3 (05:42→21:52)
[2020-07-26] MEDS: lamoTRIgine 100 MG TABLET PO SCH (08:43)
[2020-07-26] MEDS: FLUoxetine HCl 10 MG CAPSULE PO SCH (08:43)
[2020-07-26] MEDS: Fluticasone Propionate Nasal 50 MCG/SPRAY BOTTLE NS SCH (10:20)
[2020-07-26] MEDS: traZODone 50 MG TABLET PO SCH (21:52)
[2020-07-27] MEDS: *HR* Heparin 5,000 UNIT/ML VIAL SQ SCH ×3 (05:48→21:56)
[2020-07-27] MEDS: Fluticasone Propionate Nasal 50 MCG/SPRAY BOTTLE NS SCH (08:30)
[2020-07-27] MEDS: amLODIPine 5 MG TABLET PO SCH (08:30)
[2020-07-27] MEDS: FLUoxetine HCl 10 MG CAPSULE PO SCH (08:30)
[2020-07-27] MEDS: lamoTRIgine 100 MG TABLET PO SCH (08:30)
[2020-07-27] MEDS: *HR* OxyCODONE/APAP 5/325 TABLET PO PRN (15:44)
[2020-07-27] MEDS: traZODone 50 MG TABLET PO SCH (21:56)
[2020-07-28] MEDS: *HR* Heparin 5,000 UNIT/ML VIAL SQ SCH (05:41)
[2020-07-28] MEDS: amLODIPine 5 MG TABLET PO SCH (09:21)
[2020-07-28] MEDS: lamoTRIgine 100 MG TABLET PO SCH (09:22)
[2020-07-28] MEDS: Fluticasone Propionate Nasal 50 MCG/SPRAY BOTTLE NS SCH (09:22)
[2020-07-28] MEDS: FLUoxetine HCl 10 MG CAPSULE PO SCH (09:22)
[2020-07-28 11:01] VITALS: BP 152/71
== END 2020-07-28 15:11 | DRG 65 ==
LOC: 3BNU 05:30 → EMEROOARM 05:30 → 3BNU 09:04 → SUATTDRO 07-25 12:26 → 3BNU 07-27 21:07
PROVIDERS: ADMIT Family Medicine; ATTEND Internal Medicine

== ENCOUNTER 2020-08-12 20:10 | Observation (INO) ==
[2020-08-12] MEDS ORDERED: Morphine Sulfate 2 MG/ML SYRINGE IVP ONE (20:34)
[2020-08-12 21:16] LABS: Basophils # 0.1 K/mcL (0.0-0.2); Basophils % 0.5 %; Eosinophils # 0.3 K/mcL (0.0-0.6); Eosinophils % 2.4 %; Hematocrit 44.5 % (35.3-44.9); Hemoglobin 14.7 g/dL (11.5-15.4); Immature Granulocytes % 0.5 % (0-4); Lymphocytes # 2.2 K/mcL (0.6-4.6); Lymphocytes % 18.1 %; Mean Corpuscular Hemoglobin 32.9 pg (28.0-33.3); Mean Corpuscular Volume 99.6 fL (83.0-100.0); Mean Platelet Volume 10.2 fL (9.4-12.4); Monocytes # 0.5 K/mcL (0.0-1.3); Monocytes % 4.1 %; Neutrophils # 9.1 K/mcL (1.6-8.9); Platelet Count 364 K/mcL (140-400); Red Blood Count 4.47 M/mcL (3.82-4.97); Segmented Neutrophils % 74.4 %; White Blood Count 12.3 K/mcL (4.3-11.1)
[2020-08-12 21:29] LABS: Prothrombin Time 11.5 Seconds (9.4-12.1)
[2020-08-12 21:31] LABS: Activated Partial Thrombo Time 31.3 Seconds (26.0-36.0)
[2020-08-12 21:41] LABS: BUN/Creatinine Ratio 20 (6-26); Blood Urea Nitrogen 18 mg/dL (6-20); Calcium 9.3 mg/dL (8.6-10.3); Carbon Dioxide 23 mEq/L (23-29); Chloride 108 mEq/L (98-107); Glucose 114 mg/dL (70-105); Osmolality,Calculated 295 (280-300); Potassium 3.7 mEq/L (3.5-5.1); Sodium 141 mEq/L (136-145); Troponin I < 0.03 ng/mL (< 0.04); eGFR For African Americans > 60 (> 60); eGFR For Non-African Americans > 60 (> 60)
[2020-08-12] MEDS ORDERED: Naloxone 0.4 MG/ML INJ IVP PRN (22:55)
[2020-08-12] MEDS ORDERED: Ondansetron 4 MG/2 ML VIAL IVP PRN (22:55)
[2020-08-12] MEDS ORDERED: Acetaminophen 325 MG TABLET PO PRN (22:59)
[2020-08-13] MEDS ORDERED: Isovue-370 500 ML BOTTLE IVP ONE (00:42)
[2020-08-13] MEDS ORDERED: Isovue-370 500 ML BOTTLE PO ONE (03:15)
[2020-08-13 05:16] LABS: Basophils % 0.4 %; Eosinophils # 0.1 K/mcL (0.0-0.6); Eosinophils % 1.2 %; Hematocrit 43.2 % (35.3-44.9); Hemoglobin 13.9 g/dL (11.5-15.4); Immature Granulocytes % 0.4 % (0-4); Lymphocytes # 2.5 K/mcL (0.6-4.6); Mean Corpuscular HGB Conc 32.2 g/dL (31.6-35.5); Mean Corpuscular Hemoglobin 32.6 pg (28.0-33.3); Mean Corpuscular Volume 101.4 fL (83.0-100.0); Mean Platelet Volume 10.1 fL (9.4-12.4); Monocytes # 0.6 K/mcL (0.0-1.3); Monocytes % 5.3 %; Neutrophils # 7.2 K/mcL (1.6-8.9); Platelet Count 311 K/mcL (140-400); Red Blood Count 4.26 M/mcL (3.82-4.97); Red Cell Distribution Width 12.1 % (11.5-14.5); Segmented Neutrophils % 68.7 %; White Blood Count 10.4 K/mcL (4.3-11.1)
[2020-08-13 05:23] LABS: Prothrombin Time 11.5 Seconds (9.4-12.1)
[2020-08-13 05:38] LABS: Alanine Aminotransferase 18 Units/L (7-52); Albumin 3.6 g/dL (3.5-5.7); Albumin/Globulin Ratio 1.2 (1.1-2.2); Alkaline Phosphatase 109 Units/L (34-104); Aspartate Amino Transferase 14 Units/L (13-39); BUN/Creatinine Ratio 23 (6-26); Bilirubin,Total 0.6 mg/dL (0.3-1.0); Blood Urea Nitrogen 17 mg/dL (6-20); Calcium 8.9 mg/dL (8.6-10.3); Carbon Dioxide 24 mEq/L (23-29); Chloride 109 mEq/L (98-107); Cholesterol 96 mg/dL (< 200); Globulin 2.9 g/dL (2.4-3.5); Glucose 105 mg/dL (70-105); HDL Cholesterol 32 mg/dL (40-59); LDL Cholesterol,Calculated 51 mg/dL (< 100); Osmolality,Calculated 290 (280-300); Potassium 3.8 mEq/L (3.5-5.1); Sodium 139 mEq/L (136-145); Total Protein 6.5 g/dL (6.4-8.9); Triglycerides 65 mg/dL (< 150); eGFR For African Americans > 60 (> 60); eGFR For Non-African Americans > 60 (> 60)
[2020-08-13] MEDS: *HR* Heparin 5,000 UNIT/ML VIAL SQ SCH ×2 (06:46→13:10)
[2020-08-13 07:13] LABS: Bilirubin,Urine Negative (Negative); Blood,Urine Negative (Negative); Clarity,Urine Clear (Clear); Color,Urine Colorless (Yellow); Glucose,Urine (UA) Normal (Normal); Ketones,Urine Negative (Negative); Leukocyte Esterase,Urine Negative (Negative); Nitrite,Urine Negative (Negative); Protein,Urine Negative (Neg-Trace); Specific Gravity,Urine > 1.030 (1.010-1.025); Urobilinogen,Urine Normal (Normal)
[2020-08-13] MEDS: FLUoxetine HCl 10 MG CAPSULE PO SCH ×2 (09:00→13:09)
[2020-08-13] MEDS: lamoTRIgine 100 MG TABLET PO SCH ×2 (09:00→13:09)
[2020-08-13 15:18] VITALS: BP 114/66
[2020-08-13] MEDS ORDERED: traZODone 50 MG TABLET PO SCH (21:00)
[2020-08-14] MEDS ORDERED: amLODIPine 5 MG TABLET PO SCH (09:00)
== END 2020-08-13 19:20 ==
LOC: EMEROOARM 20:10 → 3NENU 20:10
PROVIDERS: ADMIT Internal Medicine; ATTEND Internal Medicine

== ENCOUNTER 2021-12-25 17:23 | Inpatient (IN) ==
[2021-12-25] MEDS ORDERED: Potassium Chloride Elixir 20 MEQ/15 ML UDC PO ONE (18:33)
[2021-12-25] MEDS ORDERED: 0.9 % Sodium Chloride 500 ML IVC ONE (18:33)
[2021-12-25] MEDS ORDERED: Isovue-370 500 ML BOTTLE IVP ONE (18:35)
[2021-12-25 19:20] LABS: Hematocrit 49.5 % (35.3-44.9); Hemoglobin 16.4 g/dL (11.5-15.4); Mean Corpuscular HGB Conc 33.1 g/dL (31.6-35.5); Mean Corpuscular Hemoglobin 30.9 pg (28.0-33.3); Mean Corpuscular Volume 93.2 fL (83.0-100.0); Mean Platelet Volume 10.8 fL (9.4-12.4); Platelet Count 378 K/mcL (140-400); Red Blood Count 5.31 M/mcL (3.82-4.97); Red Cell Distribution Width 13.3 % (11.5-14.5); White Blood Count 16.7 K/mcL (4.3-11.1)
[2021-12-25 19:43] LABS: Albumin 3.7 g/dL (3.5-5.7); Albumin/Globulin Ratio 1.1 (1.1-2.2); Bilirubin,Direct 0.2 mg/dL (0.0-0.2); Bilirubin,Indirect 1.3 mg/dL (0.0-1.0); Bilirubin,Total 1.5 mg/dL (0.3-1.0); Calcium 9.3 mg/dL (8.6-10.3); Globulin 3.4 g/dL (2.4-3.5); Potassium 1.9 mEq/L (3.5-5.1); Total Protein 7.1 g/dL (6.4-8.9)
[2021-12-25] MEDS ORDERED: Ondansetron 4 MG/2 ML VIAL IVP PRN (21:57)
[2021-12-25] MEDS ORDERED: Naloxone 0.4 MG/ML INJ IVP PRN (21:57)
[2021-12-25] MEDS ORDERED: traZODone 50 MG TABLET PO SCH (22:00)
[2021-12-25] MEDS: Acetaminophen 325 MG TABLET PO PRN (23:17)
[2021-12-26] MEDS: Nystatin SUSP 5 ML UD.LIQ PO SCH ×5 (00:14→19:59)
[2021-12-26] MEDS ORDERED: 0.9 % Sodium Chloride 1,000 ML IVC ONE (02:11)
[2021-12-26 02:36] LABS: Amorphous Sediment,Urine Few per hpf (None-Few); Bilirubin,Urine Negative (Negative); Blood,Urine Trace (Negative); Clarity,Urine Turbid (Clear); Color,Urine Yellow (Yellow); Glucose,Urine (UA) Normal (Normal); Ketones,Urine Negative (Negative); Leukocyte Esterase,Urine Large (Negative); Nitrite,Urine Positive (Negative); PH,Urine 6.5 pH Units (5.0-8.0); Protein,Urine 50 mg/dL (Neg-Trace); RBC,Urine 30-50 per hpf (0-3); Renal Epithelial Cells,Urine Few per hpf (None-Few); Specific Gravity,Urine > 1.030 (1.010-1.025); Squamous Epithelial Cell,Urine Few per hpf (None-Few); Transitional Epi Cells,Urine Few per hpf (None-Few); Urobilinogen,Urine Normal (Normal); WBC,Urine TNTC per hpf (0-3)
[2021-12-26 02:44] LABS: Basophils # 0.1 K/mcL (0.0-0.2); Basophils % 0.4 %; Eosinophils # 0.2 K/mcL (0.0-0.6); Eosinophils % 1.1 %; Hematocrit 40.4 % (35.3-44.9); Immature Granulocytes % 0.4 % (0-4); Lymphocytes # 3.8 K/mcL (0.6-4.6); Lymphocytes % 27.4 %; Mean Corpuscular HGB Conc 33.7 g/dL (31.6-35.5); Mean Corpuscular Hemoglobin 31.2 pg (28.0-33.3); Mean Corpuscular Volume 92.7 fL (83.0-100.0); Monocytes # 0.8 K/mcL (0.0-1.3); Monocytes % 5.9 %; Platelet Count 299 K/mcL (140-400); Red Blood Count 4.36 M/mcL (3.82-4.97); Red Cell Distribution Width 13.4 % (11.5-14.5); Segmented Neutrophils % 64.8 %; White Blood Count 13.8 K/mcL (4.3-11.1)
[2021-12-26 02:57] LABS: Campylobacter by PCR Not detected (Not detect); Plesiomonas shigelloides PCR Not detected (Not detect); Salmonella PCR Not detected (Not detect)
[2021-12-26 02:58] LABS: Adenovirus F 40/41 PCR Not detected (Not detect); Astrovirus PCR Not detected (Not detect); C.difficile Toxin A/B Gene PCR DETECTED (Not detect); Cryptosporidium by PCR Not detected (Not detect); Cyclospora cayetanensis PCR Not detected (Not detect); E. coli O157 by PCR Not detected (Not detect); Entamoeba histolytica PCR Not detected (Not detect); Enteroaggregative E.coli(EAEC) Not detected (Not detect); Enteropathogenic E.coli(EPEC) Not detected (Not detect); Enterotoxigenic E.coli (ETEC) Not detected (Not detect); Giardia lamblia PCR Not detected (Not detect); Norovirus GI/GII PCR Not detected (Not detect); Rotavirus A PCR Not detected (Not detect); Sapovirus PCR Not detected (Not detect); Shig/EnteroinvasiveE coli EIEC Not detected (Not detect); Shigalike tox-prod E coli STEC Not detected (Not detect); Vibrio PCR Not detected (Not detect); Vibrio cholerae PCR Not detected (Not detect); Yersinia enterocolitica PCR Not detected (Not detect)
[2021-12-26 03:02] LABS: Alanine Aminotransferase 16 Units/L (7-52); Albumin/Globulin Ratio 1.1 (1.1-2.2); Alkaline Phosphatase 62 Units/L (34-104); Aspartate Amino Transferase 33 Units/L (13-39); BUN/Creatinine Ratio 11 (6-26); Bilirubin,Total 1.4 mg/dL (0.3-1.0); Blood Urea Nitrogen 12 mg/dL (8-23); Calcium 8.3 mg/dL (8.6-10.3); Carbon Dioxide 39 mEq/L (23-29); Chloride 94 mEq/L (98-107); Globulin 2.8 g/dL (2.4-3.5); Glucose 95 mg/dL (70-105); Magnesium 1.9 mg/dL (1.6-2.6); Osmolality,Calculated 290 (280-300); Phosphorous 1.7 mg/dL (2.7-4.5); Potassium 2.1 mEq/L (3.5-5.1); Sodium 140 mEq/L (136-145); Total Protein 5.8 g/dL (6.4-8.9); eGFR For African Americans > 60 (> 60); eGFR For Non-African Americans 53 (> 60)
[2021-12-26 03:12] LABS: Hemoglobin 13.6 g/dL (11.5-15.4)
[2021-12-26] MEDS ORDERED: Potassium Chloride Elixir 20 MEQ/15 ML UDC PO ONE (03:33)
[2021-12-26] MEDS ORDERED: Potassium Phosphate 44 MEQ in 0.9 % Sodium Chloride 250 ML IVPB ONE (03:56)
[2021-12-26] MEDS ORDERED: Calcium Gluconate 1gm/50mL 1 GM/50 ML BAG IVPB ONE (03:56)
[2021-12-26] MEDS: Ketorolac 30 MG/ML VIAL IM PRN ×3 (04:20→18:16)
[2021-12-26] MEDS: Vancomycin Oral Soln 125 MG/2.5 ML UDC PO SCH ×4 (05:33→19:56)
[2021-12-26] MEDS: Desitin (Zinc Oxide) 56 GM TUBE TP PRN ×2 (05:36→20:04)
[2021-12-26] MEDS ORDERED: *HR* Heparin 5,000 UNIT/ML VIAL SQ SCH (06:00)
[2021-12-26] MEDS: cefTRIAXone 1,000 MG in 0.9 % Sodium Chloride Mini Bag 100 ML IVPB SCH (08:22)
[2021-12-26] MEDS: Acetaminophen 325 MG TABLET PO PRN (09:31)
[2021-12-26 10:34] LABS: Alanine Aminotransferase 16 Units/L (7-52); Albumin 2.9 g/dL (3.5-5.7); Albumin/Globulin Ratio 1.1 (1.1-2.2); Alkaline Phosphatase 71 Units/L (34-104); Aspartate Amino Transferase 31 Units/L (13-39); BUN/Creatinine Ratio 11 (6-26); Blood Urea Nitrogen 11 mg/dL (8-23); Calcium 8.2 mg/dL (8.6-10.3); Carbon Dioxide 35 mEq/L (23-29); Chloride 97 mEq/L (98-107); Globulin 2.6 g/dL (2.4-3.5); Glucose 127 mg/dL (70-105); Osmolality,Calculated 293 (280-300); Potassium 2.2 mEq/L (3.5-5.1); Sodium 141 mEq/L (136-145); Total Protein 5.5 g/dL (6.4-8.9); eGFR For African Americans > 60 (> 60); eGFR For Non-African Americans 54 (> 60)
[2021-12-26] MEDS ORDERED: Acetaminophen 325 MG TABLET PO PRN (15:07)
[2021-12-26] MEDS ORDERED: 0.9 % Sodium Chloride 1,000 ML IVC SCH (15:30)
[2021-12-26 16:07] LABS: Phosphorous 3.6 mg/dL (2.7-4.5)
[2021-12-26] MEDS: Melatonin 3 MG TABLET PO PRN (19:57)
[2021-12-26] MEDS: Potassium Chloride 40 MEQ in D5% in 0.45% NACL 1,000 ML IVC SCH (19:58)
[2021-12-26] MEDS: *HR* Heparin 5,000 UNIT/ML VIAL SQ SCH (21:09)
[2021-12-26] MEDS ORDERED: Saliva Stimulant 44.3ml BOTTLE PO PRN (21:23)
[2021-12-27] MEDS: Potassium Chloride 40 MEQ in D5% in 0.45% NACL 1,000 ML IVC SCH ×3 (04:12→17:20)
[2021-12-27] MEDS: Ketorolac 30 MG/ML VIAL IM PRN ×3 (04:59→22:31)
[2021-12-27] MEDS: *HR* Heparin 5,000 UNIT/ML VIAL SQ SCH ×3 (04:59→20:01)
[2021-12-27 06:04] LABS: Alanine Aminotransferase 16 Units/L (7-52); Albumin 2.7 g/dL (3.5-5.7); Albumin/Globulin Ratio 1.2 (1.1-2.2); Alkaline Phosphatase 75 Units/L (34-104); Aspartate Amino Transferase 31 Units/L (13-39); BUN/Creatinine Ratio 9 (6-26); Bilirubin,Total 0.8 mg/dL (0.3-1.0); Blood Urea Nitrogen 8 mg/dL (8-23); Calcium 7.8 mg/dL (8.6-10.3); Carbon Dioxide 34 mEq/L (23-29); Chloride 101 mEq/L (98-107); Globulin 2.3 g/dL (2.4-3.5); Glucose 101 mg/dL (70-105); Osmolality,Calculated 292 (280-300); Potassium 2.4 mEq/L (3.5-5.1); Sodium 142 mEq/L (136-145); eGFR For African Americans > 60 (> 60); eGFR For Non-African Americans > 60 (> 60)
[2021-12-27 07:06] LABS: Basophils # 0.1 K/mcL (0.0-0.2); Basophils % 0.5 %; Eosinophils # 0.5 K/mcL (0.0-0.6); Eosinophils % 4.6 %; Hematocrit 39.6 % (35.3-44.9); Hemoglobin 12.8 g/dL (11.5-15.4); Immature Granulocytes % 0.5 % (0-4); Lymphocytes # 2.2 K/mcL (0.6-4.6); Lymphocytes % 21.3 %; Mean Corpuscular HGB Conc 32.3 g/dL (31.6-35.5); Mean Corpuscular Volume 95.9 fL (83.0-100.0); Mean Platelet Volume 10.8 fL (9.4-12.4); Monocytes # 0.5 K/mcL (0.0-1.3); Monocytes % 4.5 %; Neutrophils # 6.9 K/mcL (1.6-8.9); Platelet Count 245 K/mcL (140-400); Red Blood Count 4.13 M/mcL (3.82-4.97); Red Cell Distribution Width 13.8 % (11.5-14.5); Segmented Neutrophils % 68.6 %; White Blood Count 10.1 K/mcL (4.3-11.1)
[2021-12-27] MEDS: Vancomycin Oral Soln 125 MG/2.5 ML UDC PO SCH ×4 (08:44→19:58)
[2021-12-27] MEDS: cefTRIAXone 1,000 MG in 0.9 % Sodium Chloride Mini Bag 100 ML IVPB SCH (08:45)
[2021-12-27] MEDS: Nystatin SUSP 5 ML UD.LIQ PO SCH ×4 (08:45→19:57)
[2021-12-27] MEDS ORDERED: Furosemide 20 MG TABLET PO SCH (09:00)
[2021-12-27] MEDS ORDERED: Potassium Effervescent 25 MEQ TABLET.EFF PO ONE ×2 (10:14→15:22)
[2021-12-27 13:25] LABS: Magnesium 1.8 mg/dL (1.6-2.6); Potassium 3.2 mEq/L (3.5-5.1)
[2021-12-27] MEDS: MetroNIDAZOLE 500 MG/100 ML 500 MG/100 ML BAG IVPB SCH (16:19)
[2021-12-27] MEDS: Melatonin 3 MG TABLET PO PRN (22:31)
[2021-12-27] MEDS ORDERED: Aquaphor/Maalox 50 GM BOTTLE TP PRN (23:59)
[2021-12-28] MEDS: MetroNIDAZOLE 500 MG/100 ML 500 MG/100 ML BAG IVPB SCH ×3 (00:39→16:16)
[2021-12-28] MEDS: Potassium Chloride 40 MEQ in D5% in 0.45% NACL 1,000 ML IVC SCH ×3 (00:43→16:55)
[2021-12-28 02:21] LABS: Basophils # 0.1 K/mcL (0.0-0.2); Basophils % 0.5 %; Eosinophils # 0.6 K/mcL (0.0-0.6); Eosinophils % 6.7 %; Hematocrit 36.1 % (35.3-44.9); Hemoglobin 11.8 g/dL (11.5-15.4); Immature Granulocytes % 0.3 % (0-4); Lymphocytes # 2.8 K/mcL (0.6-4.6); Lymphocytes % 30.8 %; Mean Corpuscular HGB Conc 32.7 g/dL (31.6-35.5); Mean Corpuscular Hemoglobin 31.4 pg (28.0-33.3); Mean Platelet Volume 10.6 fL (9.4-12.4); Monocytes # 0.5 K/mcL (0.0-1.3); Neutrophils # 5.2 K/mcL (1.6-8.9); Platelet Count 245 K/mcL (140-400); Red Blood Count 3.76 M/mcL (3.82-4.97); Red Cell Distribution Width 13.7 % (11.5-14.5); Segmented Neutrophils % 56.7 %; White Blood Count 9.2 K/mcL (4.3-11.1)
[2021-12-28 02:36] LABS: Alanine Aminotransferase 20 Units/L (7-52); Albumin 2.5 g/dL (3.5-5.7); Alkaline Phosphatase 84 Units/L (34-104); Aspartate Amino Transferase 43 Units/L (13-39); BUN/Creatinine Ratio 9 (6-26); Bilirubin,Total 0.4 mg/dL (0.3-1.0); Blood Urea Nitrogen 7 mg/dL (8-23); Calcium 7.6 mg/dL (8.6-10.3); Carbon Dioxide 30 mEq/L (23-29); Chloride 106 mEq/L (98-107); Globulin 2.4 g/dL (2.4-3.5); Glucose 107 mg/dL (70-105); Osmolality,Calculated 290 (280-300); Potassium 3.1 mEq/L (3.5-5.1); Sodium 141 mEq/L (136-145); Total Protein 4.9 g/dL (6.4-8.9); eGFR For African Americans > 60 (> 60); eGFR For Non-African Americans > 60 (> 60)
[2021-12-28] MEDS: *HR* Heparin 5,000 UNIT/ML VIAL SQ SCH ×3 (05:30→20:20)
[2021-12-28] MEDS: Ketorolac 30 MG/ML VIAL IM PRN ×3 (06:32→20:20)
[2021-12-28] MEDS: Vancomycin Oral Soln 125 MG/2.5 ML UDC PO SCH ×4 (08:31→20:19)
[2021-12-28] MEDS: cefTRIAXone 1,000 MG in 0.9 % Sodium Chloride Mini Bag 100 ML IVPB SCH (08:32)
[2021-12-28] MEDS: Nystatin SUSP 5 ML UD.LIQ PO SCH ×4 (08:32→20:20)
[2021-12-28] MEDS ORDERED: Potassium Effervescent 25 MEQ TABLET.EFF PO ONE (08:37)
[2021-12-28] MEDS: Melatonin 3 MG TABLET PO PRN (20:20)
[2021-12-28] MEDS ORDERED: *HR* LORazepam 0.5 MG TABLET PO ONE (20:40)
[2021-12-28] MEDS ORDERED: *HR* HYDROcodone/Acet 5/325 mg TABLET PO ONE (20:41)
[2021-12-28 23:37] VITALS: O2SAT 95
[2021-12-29] MEDS: MetroNIDAZOLE 500 MG/100 ML 500 MG/100 ML BAG IVPB SCH ×2 (00:16→14:07)
[2021-12-29] MEDS: Potassium Chloride 40 MEQ in D5% in 0.45% NACL 1,000 ML IVC SCH (00:16)
[2021-12-29 01:40] LABS: Basophils % 0.5 %; Eosinophils # 0.6 K/mcL (0.0-0.6); Eosinophils % 7.4 %; Hematocrit 36.2 % (35.3-44.9); Immature Granulocytes % 0.3 % (0-4); Lymphocytes # 2.9 K/mcL (0.6-4.6); Lymphocytes % 38.2 %; Mean Corpuscular HGB Conc 33.1 g/dL (31.6-35.5); Mean Corpuscular Hemoglobin 32.3 pg (28.0-33.3); Mean Corpuscular Volume 97.3 fL (83.0-100.0); Mean Platelet Volume 10.3 fL (9.4-12.4); Monocytes # 0.4 K/mcL (0.0-1.3); Monocytes % 4.6 %; Neutrophils # 3.8 K/mcL (1.6-8.9); Platelet Count 219 K/mcL (140-400); Red Blood Count 3.72 M/mcL (3.82-4.97); Red Cell Distribution Width 13.6 % (11.5-14.5); White Blood Count 7.7 K/mcL (4.3-11.1)
[2021-12-29 02:02] LABS: Alanine Aminotransferase 19 Units/L (7-52); Albumin 2.4 g/dL (3.5-5.7); Alkaline Phosphatase 84 Units/L (34-104); Aspartate Amino Transferase 32 Units/L (13-39); BUN/Creatinine Ratio 7 (6-26); Bilirubin,Total 0.4 mg/dL (0.3-1.0); Blood Urea Nitrogen 5 mg/dL (8-23); Calcium 7.7 mg/dL (8.6-10.3); Carbon Dioxide 24 mEq/L (23-29); Chloride 111 mEq/L (98-107); Globulin 2.3 g/dL (2.4-3.5); Glucose 102 mg/dL (70-105); Osmolality,Calculated 287 (280-300); Potassium 3.7 mEq/L (3.5-5.1); Sodium 140 mEq/L (136-145); Total Protein 4.7 g/dL (6.4-8.9); eGFR For African Americans > 60 (> 60); eGFR For Non-African Americans > 60 (> 60)
[2021-12-29] MEDS: *HR* Heparin 5,000 UNIT/ML VIAL SQ SCH ×2 (05:12→14:07)
[2021-12-29] MEDS: Ketorolac 30 MG/ML VIAL IM PRN (05:12)
[2021-12-29 08:09] VITALS: PULSE 61
[2021-12-29] MEDS: Nystatin SUSP 5 ML UD.LIQ PO SCH ×2 (09:17→14:06)
[2021-12-29] MEDS: Vancomycin Oral Soln 125 MG/2.5 ML UDC PO SCH ×2 (09:17→14:06)
[2021-12-29] MEDS: cefTRIAXone 1,000 MG in 0.9 % Sodium Chloride Mini Bag 100 ML IVPB SCH (09:19)
[2021-12-29] MEDS ORDERED: Miconazole 2% ointment 141 APPL/141 GM TUBE TP SCH (12:00)
[2021-12-29 15:15] VITALS: BP 158/60; TEMP 97.8
== END 2021-12-29 17:20 | disposition home or self-care (01) | DRG 372 ==
LOC: 2NENU 17:23 → EMEROOARM 17:23 → SUATTDRO 20:27 → 2NENU 21:16 → SUATTDRO 12-27 17:15
PROVIDERS: ADMIT Internal Medicine; ATTEND Hospitalist